=== PATIENT | male | born 1945 | race Caucasian/White ===

== ENCOUNTER 2021-12-10 11:39 | Outpatient (CLI) | payer MEDICARE, SELFPAY ==
--- NOTE | ~2021-12-10 | XR_ITS ---
EXAM: XR abdomen/kub 1V DATE: 12/10/2021 12:05 HISTORY: CALCIUM KIDNEY STONE . COMPARISON: None available. FINDINGS: Clear lung bases. Normal bowel gas pattern. No organomegaly. Cholelithiasis. Left ureteral stent. 2.1 cm left midpole calcification. Larger partially overlapping ovoid densities may represent additional new stones or summation artifact. Lumbar scoliosis and multilevel degenerative disc disea se. IMPRESSION: Left nephrolithiasis. Reviewed, dictated and finalized at location K. IMPRESSION: Left nephrolithiasis.
== END 2021-12-10 11:40 | disposition home or self-care (01) ==
PROVIDERS: PCP Emergency Medicine; Visit Provider Urology
DX: N20.0 Calculus of kidney (principal)
CPT/HCPCS: 74018

== ENCOUNTER 2022-01-02 08:15 | Outpatient (CLI) | payer MEDICARE, OTHER, SELFPAY ==
--- NOTE | 2022-01-02 08:30 | ECG_ITS ---
Measurements Intervals [place] Rate: 61 P: 45 PA: 171 QRS: -37 QRSD: 118 T: 38 QT: 388 QTc: 394 Interpretive Statements SINUS RHYTHM LEFT AXIS DEVIATION DELAYED PRECORDIAL R/S TRANSITION LEFT VENTRICULAR HYPERTROPHY AND ST-T CHANGE BASELINE ARTIFACT- I, II, III, AVR, AVL, AVF, V1-V6 BORDERLINE ECG Electronically Signed On 01-02-2022 8:48:27 CDT by Brandon Friedman D.O.
[2022-01-02 08:58] LABS: Anion Gap 8 mmol/L (8-16); Blood Urea Nitrogen 15 mg/dL (9-20); Calcium 9.5 mg/dL (8.4-10.2); Carbon Dioxide 30 mmol/L (22-30); Chloride 102 mmol/L (98-107); Estimated Glomerular Filt Rate > 60; Glucose 176 mg/dL (65-110); Potassium 4.5 mmol/L (3.4-5.0); Sodium 140 mmol/L (137-145)
[2022-01-02 09:12] LABS: Prothrombin Time 12.6 Seconds (11.1-14.7)
[2022-01-02 09:13] LABS: Partial Thromboplastin Time 29.1 SECONDS (22.3-36.8)
== END 2022-01-02 08:16 | disposition home or self-care (01) ==
LOC: ANHSURGERY 08:22
PROVIDERS: Anesthesiology; PCP Internal Medicine; Visit Provider Urology
DX: N20.0 Calculus of kidney (principal); I10 Essential (primary) hypertension; E11.9 Type 2 diabetes mellitus without complications; Z01.818 Encounter for other preprocedural examination; R94.31 Abnormal electrocardiogram [ECG] [EKG]
CPT/HCPCS: 36415; 80048; 85610; 85730; 87086; 87088; 93005

== ENCOUNTER 2022-01-10 01:02 | Day surgery (SDC) | payer MEDICARE, OTHER, SELFPAY ==
[2022-01-01 11:18] VITALS: BMI 24.3
--- NOTE | 2022-01-01 11:30 | PC.NURSE ---
Report to the Outpatient Waiting Room, entrance under the green pavilion located off [facility], at time _0600_ on date _01/10/22_. OR Time: _0730_. - You and your visitor will be asked a series of questions to screen for COVID 19 for your protection. - Only one visitor is allowed at this time. - The patient visitor is requested to leave or wait in car when not with patient. - A mask is required within the hospital. Patients may have clear liquids (water, carbonated beverages, clear teas, apple juice) until 3 hours prior to surgery (0430 AM) with a maximum of 20 ounces. - No food from midnight until time of surgery Take the following medications with a SIP of water the morning of surgery: _AMLODIPINE, METOPROLOL_ Medications to discontinue per ANESTHESIA - MULTIVITAMIN 3 DAYS PRIOR TO SURGERY, Date to take last dose 01/06/22_ Please no deodorant, or body powder the day of surgery. No jewelry (including any body piercings) or valuables the day of surgery, leave them at home. Please take a shower or bath the night before, or the morning of, surgery with an antibacterial soap. Wear comfortable, loose fitting clothing. Children are encouraged to wear pajamas. - Jewelry must be removed prior to entering the operating room. Rings and piercings that are not removed may be cut off. - The hospital will not accept responsibility for valuables. - Please leave all valuables, including medications, at home the day of surgery. If you are going home after surgery, a licensed haul truck driver must drive you home. - NO public transportation without another adult. - We recommend that an adult stay with you for 24 hours following discharge. - We also recommend that you do not drive, make important decision, drink alcoholic beverages, or take any drugs that were not prescribed by your health care provider for at least 24 hours after your discharge time. Follow any additional instructions given to you from your surgeon. If you or anyone in your household have experienced Covid symptoms in the past week, please notify your surgeon or the nurse liaison at the phone number below for possible testing. Telephone instructions given to ___PT and asked if any additional questions and then verbalized understanding. Patient advised to call surgeon office or pre surgery nurse liaison [phone] if any additional questions.
--- NOTE | 2022-01-09 14:42 | P.PNAN_ITS ---
Anes - Initial Pre Proc Eval Procedure: Operation Date: 01/10/22 07:30 Proposed Procedures p Left Extracorporeal Shock Wave Lithotripsy - Harsh Alvarez MD Date/Time: 01/09/22 14:42 Surgeon: Harsh Alvarez MD Pre Op Diagnosis: Left Kidney Stone Patient Data Age: 76 Gender: M Height: 1.73 m Weight: 72.72 kg Allergies Allergy/AdvReac Type Severity Reaction Status Date / Time No Known Allergies Allergy Unknown Unverified 01/01/22 11:14 Home Medications Medication Instructions Recorded Confirmed Type amlodipine 10 mg tablet 10 mg DAILY 01/01/22 01/01/22 History empagliflozin 25 mg tablet 25 mg QAM 01/01/22 01/01/22 History (Jardiance) finasteride 5 mg tablet 5 mg HS 01/01/22 01/01/22 History glimepiride 4 mg tablet 4 mg BID 01/01/22 01/01/22 History lisinopril 40 mg tablet 40 mg QA 01/01/22 01/01/22 History lovastatin 40 mg tablet 40 mg HS 01/01/22 01/01/22 History metformin 1,000 mg tablet 1,000 mg BID 01/01/22 01/01/22 History metoprolol tartrate 25 mg tablet 25 mg BID 01/01/22 01/01/22 History multivitamin 1 tablet PO DAILY 01/01/22 01/01/22 History tamsulosin 0.4 mg capsule 0.4 mg PO HS 01/01/22 01/01/22 History Patient hx anesthesia problems: none Family hx anesthesia problems: none Results Review: All pre-operative results and documents have been reviewed as part of the pre- operative evaluation. [facility] Past Medical History Medical History (Updated 01/09/22 @ 14:43 by Rolando Bacon MD) Arthritis BPH (benign prostatic hyperplasia) Diabetes HTN (hypertension) Hyperlipidemia Social History Social History Smoking status: Former smoker Tobacco type: cigarettes Second hand tobacco smoke exposure: No Additional smoking assessment comments: STATES SMOKED 1PK/DAY/MANY YEARS/QUIT 1999 Alcohol intake: never Substance use: never Substance use type: does not use Living arrangements: with family Spiritual care concerns: No Anes - Eval Final PreProcedure Day of Procedure 01/09/22 14:42 Patient weight: normal Heart: regular rate and rhythm Lungs: clear to auscultation and normal air movement Airway: Mallampati scale class II Neurological: alert and oriented Last oral intake: >/= 8 hours ASA classification: III Emergent: no Anesthetic plan: proceed Anesthesia type and monitoring: general LMA Results Review: All pre-operative results and documents have been reviewed as part of the pre- operative evaluation. Informed Consent: The patient's anesthetic plan and its attendant risks and benefits were discussed with the patient/family/POA. Questions were solicited and answers provided to the satisfaction of the patient/family/POA.
[2022-01-10] VITALS (7 sets, daily range): BP systolic 111–127; BP diastolic 45–64; PULSE 61–70; RESP 12–20; TEMP 36.3–36.9; O2SAT 98–100
--- NOTE | ~2022-01-10 | XR_ITS ---
EXAMINATION: XR abdomen/kub 1V DATE: 01/10/2022 06:26 INDICATION: Left kidney stone. TECHNIQUE: A supine view of the abdomen on 2 radiographs was obtained. COMPARISON: Abdomen radiographs 12/10/2021, CT abdomen and pelvis 06/14/2015 FINDINGS: There is a left internal ureteral stent in expected position. There is a 2.4 cm stone in le ft renal pelvis. There are no dilated loops of bowel. IMPRESSION: 1. 2.4 cm stone in left renal pelvis. 2. Left internal ureteral stent in expected position. Reviewed, dictated and finalized at location A.
[2022-01-10] MEDS: LACTATED RINGERS 1,000 ML 30 ML IV CONT (06:47)
[2022-01-10 07:00] LABS: Glucose Point of Care 97 mg/dl (65-105)
--- NOTE | 2022-01-10 07:19 | WPDHPUPDATE1 ---
History and Physical Update Update Date/Time: 01/10/22 07:19 History and Physical has been reviewed, including an updated exam of the patient. There are NO changes in the patient's condition. Risks, benefits, and alternatives have been discussed and questions answered. Patient agrees to proceed with procedure. Proceed with eswl of left renal calculus
[2022-01-10] MEDS: ceFAZolin 2 GM/D5W 50 ML 2 GM/50 ML BAG IVPB (07:25)
--- NOTE | 2022-01-10 08:06 | P.OP_ITS ---
Procedure Note - Detailed Date of Procedure 01/10/22 Pre-op Diagnosis Left Kidney Stone Post-op Diagnosis Same Procedure Performed Lithotripsy of left renal calculus Surgeon Harsh Alvarez MD Anesthesia General Description of Procedure Patient is taken to the operative suite correctly identified. Once anesthesia was obtained the large left renal pelvic stone measuring 2.4 cm was localized in both planes. Two thousand five hundred shocks were given to the stone. It did not appear to have significant fragmentation at this time. He was taken recovery stable condition. We will see with his postoperative KUB shows in about a week. If there is no fragmentation on postop imaging will recommend PCN L Drains Yes Packing No Pathology None sent Complications No immediate complications Condition Stable Disposition PACU
[2022-01-10 08:22] LABS: Glucose Point of Care 118 mg/dl (65-105)
== END 2022-01-10 09:51 | disposition home or self-care (01) ==
PROVIDERS: PCP Internal Medicine; Visit Provider Urology
PROC: (CPT 50590; principal; 2022-01-10 07:30)
DX: N20.0 Calculus of kidney (principal); N40.1 Benign prostatic hyperplasia with lower urinary tract symptoms; R31.29 Other microscopic hematuria; Z79.84 Long term (current) use of oral hypoglycemic drugs; M19.90 Unspecified osteoarthritis, unspecified site; I10 Essential (primary) hypertension; E78.5 Hyperlipidemia, unspecified; E11.9 Type 2 diabetes mellitus without complications; Z87.891 Personal history of nicotine dependence
CPT/HCPCS: 50590; 74018; 82948; J0690; J1100; J2405; J2704; J7120

== ENCOUNTER 2022-01-17 06:50 | Outpatient (CLI) | payer MEDICARE, OTHER, SELFPAY ==
--- NOTE | ~2022-01-17 | XR_ITS ---
EXAMINATION: XR abdomen/kub 1V INDICATION: Calcium kidney stone TECHNIQUE: Supine views of the abdomen were obtained on 2 radiographs. COMPARISON: 01/10/2022 FINDINGS: A left internal ureteral stent in expected position. There is a 2.2 cm stone in the left re nal pelvis. No additional urolithiasis is identified. Cholelithiasis is noted. There is lumbar levosc oliosis. The visualized lung bases are clear. IMPRESSION: 1. Unchanged stone in the left renal pelvis, left internal ureteral stent in expected position. Reviewed, dictated and finalized at location A. IMPRESSION: 1. Unchanged stone in the left renal pelvis, left internal ureteral stent in ex pected position.
== END 2022-01-17 06:51 | disposition home or self-care (01) ==
PROVIDERS: PCP Internal Medicine; Visit Provider Urology
DX: N20.0 Calculus of kidney (principal)
CPT/HCPCS: 74018

== ENCOUNTER 2022-05-26 13:01 | Outpatient (CLI) | payer MEDICARE, OTHER, SELFPAY ==
--- NOTE | ~2022-05-26 | US_ITS ---
Renal-Bladder ultrasound Clinical History: Renal stone Technique: Real-time sonographic imaging of the kidneys and urinary bladder was performed. Findings: The right kidney measures 11.4 cm in length and the left kidney measures 11.4 cm. There is moderate left hydronephrosis. No right hydronephrosis. 6 mm nonobstructing left lower pole renal ston e present. Renal cortical echogenicity is within normal limits. Bilateral renal cysts are present. The urinary bladder is moderately distended at the time of this exam. No intraluminal echoes are iden tified. No abnormal wall thickening is seen. Prostate gland is enlarged. Impression: Moderate left hydronephrosis. 6 mm nonobstructing left lower pole renal stone. Enlarged prostate gland. Reviewed, dictated and finalized at location . [employer] SALES SUPERVISOR Impression: Moderate left hydronephrosis. 6 mm nonobstructing left lower pole renal stone. Enlarged prostate gland.
== END 2022-05-26 13:02 | disposition home or self-care (01) ==
PROVIDERS: PCP Internal Medicine; Visit Provider Urology
DX: N20.0 Calculus of kidney (principal)
CPT/HCPCS: 76775

== ENCOUNTER 2022-06-25 07:39 | Outpatient (CLI) | payer MEDICARE, OTHER, SELFPAY ==
--- NOTE | ~2022-06-25 | XR_ITS ---
Supine and upright views of the abdomen Clinical history: Renal stone COMPARISON: 01/17/2022 Findings: Bowel gas pattern is nonspecific. No evidence for obstruction or free air. Stable calcifica tions likely corresponding to splenic artery. Previously noted left renal stone and left ureteral yvon nt are no longer present. Osseous structures are intact. Impression: Previously noted large left renal stone and left ureteral stent are no longer visualized. Reviewed, dictated and finalized at location M. CAB DRIVER Impression: Previously noted large left renal stone and left ureteral stent are no longer v isualized.
--- NOTE | ~2022-06-25 | US_ITS ---
Renal-Bladder ultrasound Clinical History: Renal stone Technique: Real-time sonographic imaging of the kidneys and urinary bladder was performed. Findings: The right kidney measures 11.3 cm in length and the left kidney measures 11.6 cm. There is mild to moderate left hydronephrosis. Mild right hydronephrosis. 5 mm nonobstructing left lower pole renal stone noted. Renal cortical echogenicity is within normal limits. No solid renal mass lesion is identified. The urinary bladder is moderately distended at the time of this exam. No intraluminal echoes are iden tified. No abnormal wall thickening is seen. Enlarged prostate gland noted. Impression: [id number] left hydronephrosis and mild right hydronephrosis. 5 mm nonobstructing left lower pole renal stone. Enlarged prostate gland. Reviewed, dictated and finalized at [facility]. SHARPENER Impression: [id number] left hydronephrosis and mild right hydronephrosis. 5 mm nonobstructing left lower pole renal stone. Enlarged prostate gland.
== END 2022-06-25 07:40 | disposition home or self-care (01) ==
PROVIDERS: PCP Internal Medicine; Visit Provider Urology
DX: N20.0 Calculus of kidney (principal); N40.0 Benign prostatic hyperplasia without lower urinary tract symptoms; N13.30 Unspecified hydronephrosis
CPT/HCPCS: 74018; 76775

== ENCOUNTER 2023-04-03 16:14 | Inpatient (IN) | payer MEDICARE, OTHER, SELFPAY ==
[2023-04-03] VITALS (22 sets, daily range): BP systolic 99–168; BP diastolic 44–73; PULSE 45–77; RESP 11–26; TEMP 36.6–36.7; O2SAT 97–100; BMI 19.7
--- NOTE | ~2023-04-03 | XR_ITS ---
EXAMINATION: Consultation XR DATE: 04/03/2023 17:35 INDICATION: Neck pain and difficulty walking. Central canal stenosis at outside imaging TECHNIQUE: Lossy electronic images from a cervical spine MRI performed at [facility] region was perfo rmed and provided for review. COMPARISON: None FINDINGS: Bone alignment is normal. Vertebral body heights are normal. Severe disc height loss with fusion acr oss the endplate margins at C5-C6. There is also fusion across the right C5-C6 facet joint. Mild disc height loss at C2-C3, C3-C4, C4-C5 and C6-C7. Bone marrow signal intensity is normal. There is mild increased cord signal between C3-C4 and C4-C5. The following disc levels are specifically discussed: C2-C3: Disc is mildly bulging There is mild right and moderate left uncovertebral joint osteoarthriti s. There is severe bilateral facet joint osteoarthritis. There is mild right and moderate left neural foraminal stenosis. There is mild central canal stenosis. C3-C4: Disc is bulging. There is severe bilateral uncovertebral joint osteoarthritis. There is severe bilateral facet joint osteoarthritis. There is moderate to severe bilateral neural foraminal stenosi s. There is severe central canal stenosis. C4-C5: Disc is bulging. There is severe right and moderate left uncovertebral joint osteoarthritis. T here is severe bilateral facet joint osteoarthritis. There is moderate bilateral neural foraminal yvon nosis. There is severe central canal stenosis. C5-C6: The disc space appears fused posteriorly with prominent hypertrophic changes at the fused bila teral uncovertebral joints. There are also prominent hypertrophic changes at the fused right facet joe int. There is moderate left-sided facet osteoarthritis. Moderate right and moderate to severe left ne ural foraminal stenosis. There is mild central canal stenosis. C6-C7: Disc is bulging with prominent superimposed left paracentral disc extrusion. There is moderate right and severe left uncovertebral joint osteoarthritis. There is moderate right and severe left fa cet joint osteoarthritis. There is mild bilateral neural foraminal stenosis. There is mild central ca nal stenosis with indentation of the left central ventral surface of the cord. C7-T1: Disc is minimally bulging. There is mild bilateral uncovertebral joint osteoarthritis. There i s moderate right and severe left facet joint osteoarthritis. There is mild bilateral neural foraminal stenosis. There is no central canal stenosis. IMPRESSION: 1. Severe cervical spondylosis with severe central canal stenosis at C3-C4 and C4-C5 and mild interve dorota increased cord signal. Recommend correlation with report from the original diagnostic quality im ages. Reviewed, dictated and finalized at location A. IMPRESSION: 1. Severe cervical spondylosis with severe central canal stenosis at C3-C4 and C4-C5 and mild intervening increased cord signal. Recommend correlation with re port from the original diagnostic quality images.
--- NOTE | ~2023-04-03 | XR_ITS ---
EXAMINATION: XR chest 1V portable Exam Date/Time: 04/04/2023 16:05 CDT HISTORY: pre-op workup Comparison: CT chest abdomen pelvis 06/14/2015. RESULT: Lines, tubes, and devices: None. Lungs and pleura: Clear. Cardiomediastinal silhouette: Mild arch calcification. Other: No acute osseous or upper abdominal finding. IMPRESSION: No acute cardiopulmonary process. Reviewed, dictated and finalized at location K.
--- NOTE | ~2023-04-03 | CT_ITS ---
EXAMINATION: CT cervical spine wo con DATE: 04/05/2023 08:29 INDICATION: pre-op planning TECHNIQUE: Computed tomography (CT) of the cervical spine was performed without intravenous contrast. Automated exposure control and iterative reconstruction technique were employed. The dose-length pro duct was 190.24 mGy-cm. COMPARISON: None. FINDINGS: Vertebral Body Alignment: Trace grade 1 anterolisthesis at C7-T1 and T1-2. Craniocervical and atlantoaxial alignment: Severe degenerative change, with pannus formation that ind ents the thecal sac. Alignment intact. Osseous structures/fracture: No evidence of a lytic or blastic process in the visualized spine. No e vidence of acute fracture. Cervical soft tissues: The paraspinal soft tissues planes are maintained. Multiple sub-1.5 cm thyroid nodules, which require no additional workup. Biapical pleural scarring. Degenerative changes: Multilevel degenerative disc disease, severe and with fusion at C5-6. Multileve l severe facet arthropathy, with right-sided fusion at C5-6. Multilevel mild and moderate degrees of central canal narrowing. Multilevel severe bilateral neural foraminal narrowing. The following levels are specifically discussed: C2-C3: There is mild bilateral uncovertebral joint osteoarthritis. There is moderate bilateral facet joint osteoarthritis. There is no right and mild left neural foraminal stenosis. There is no central canal stenosis. C3-C4: There is moderate bilateral uncovertebral joint osteoarthritis. There is severe right and mode rate left facet joint osteoarthritis. There is severe right and moderate left neural foraminal stenos is. There is moderate central canal stenosis. C4-C5: There is severe bilateral uncovertebral joint osteoarthritis. There is severe right and modera te left facet joint osteoarthritis. There is mild neural foraminal stenosis. There is severe bilatera l central canal stenosis. C5-C6: There is severe bilateral uncovertebral joint osteoarthritis. There is severe right and modera te left facet joint osteoarthritis. There is severe bilateral neural foraminal stenosis. There is mil d central canal stenosis. C6-C7: There is mild bilateral uncovertebral joint osteoarthritis. There is moderate bilateral facet joint osteoarthritis. There is mild bilateral neural foraminal stenosis. There is mild central canal stenosis. C7-T1: There is no uncovertebral joint osteoarthritis. There is moderate bilateral facet joint osteoa rthritis. There is no neural foraminal stenosis. There is no central canal stenosis. IMPRESSION: Multilevel trace grade 1 listheses. Multilevel severe bilateral neural foraminal narrowing. Multilevel degenerative disc disease Reviewed, dictated and finalized at location K.
--- NOTE | ~2023-04-03 | XR_ITS ---
EXAMINATION: XR fluoroscopy no charge DATE: 04/08/2023 14:22 INDICATION: Cervical decompression and fusion TECHNIQUE: 2 fluoroscopic images of the cervical spine were obtained in the frontal and lateral proje ctions during procedure performed by Dr. Kaiser. Radiologist was not present for the imaging or proc edure. The amount of fluoroscopy time used during this procedure was 0.3 minutes. COMPARISON: None. FINDINGS: Lucent gas is seen at the operative bed posterior to the mid cervical spine. C3 and C4 laminectomies and instrumented C3-C5 posterior spinal fusion with bilateral vertical karis and lateral mass screw fix ation. Endotracheal tube is seen in expected position on the frontal projection. IMPRESSION: 1. Fluoroscopy utilized during C3 and C4 laminectomies and C3-C5 instrumented posterior spinal fusion . See procedure note for further detail. Reviewed, dictated and finalized at location A. IMPRESSION: 1. Fluoroscopy utilized during C3 and C4 laminectomies and C3-C5 instrumented p osterior spinal fusion. See procedure note for further detail.
[2023-04-03 17:20] LABS: Basophils Percent Auto 0.5 % (0.2-1.2); Eosinophils Absolute Auto 0.1 K/mm3 (0-0.3); Eosinophils Percent Auto 1.7 % (0-4.4); Hematocrit 38.1 % (42.0-52.0); Hemoglobin 12.3 g/dL (14.0-18.0); Immature Granulocyte Absolute 0.06 K/mm3 (0.00-0.031); Immature Granulocyte Percent A 0.8 % (0-0.5); Lymphocytes Absolute Auto 0.94 K/mm3 (0.9-3.2); Lymphocytes Percent Auto 12.3 % (18.3-44.2); Mean Corpuscular HGB Conc 32.3 g/dl (32-36); Mean Corpuscular Hemoglobin 28.9 pg (26-34); Mean Corpuscular Volume 89.4 fl (80-100); Monocytes Absolute Auto 1.2 K/mm3 (0.1-0.6); Monocytes Percent Auto 15.5 % (2.6-8.5); Neutrophils Absolute Auto 5.3 K/mm3 (1.3-6.7); Neutrophils Percent Auto 69.2 % (45.5-73.1); Platelet Count Result 216 k/mm3 (150-375); Red Blood Count 4.26 M/mm3 (4.6-6.20); Red Cell Distribution Width 13.7 % (11.5-14.5); White Blood Count 7.7 K/mm3 (4.5-10.0)
[2023-04-03 17:32] LABS: Partial Thromboplastin Time 29.4 SECONDS (22.3-36.8)
[2023-04-03 17:33] LABS: Alanine Aminotransferase 41 U/L (6-50); Alkaline Phosphatase 57 U/L (38-126); Anion Gap 4 mmol/L (8-16); Aspartate Amino Transferase 45 U/L (17-59); Bilirubin,Total 0.8 mg/dL (0.2-1.3); Blood Urea Nitrogen 24 mg/dL (9-20); Calcium 9.1 mg/dL (8.4-10.2); Carbon Dioxide 28 mmol/L (22-30); Chloride 103 mmol/L (98-107); Estimated CRCL calculation 93 ml/min; Estimated Glomerular Filt Rate > 60; Glucose 82 mg/dL (65-110); Potassium 4.2 mmol/L (3.4-5.0); Sodium 135 mmol/L (137-145)
--- NOTE | 2023-04-03 18:45 | ED.GENADULT ---
HPI - General Adult General Chief complaint: Recheck/Abnormal Lab/Rx Stated complaint: sent by PCP for MRI results Time Seen by Provider: 04/03/23 16:43 History of Present Illness HPI narrative: Patient is a 77-year-old male who presents ER to be admitted to the hospital after referral from his orthopedic surgeon. 3 weeks ago patient began having falls while walking. He has developed progressive weakness to his left leg and numbness to the hands bilaterally. He is progressed to using a cane and now a walker to walk. Outpatient MRI today showed cervical stenosis with edema around the cord. Neurosurgery was consulted outpatient by the patient's orthopedic surgeon is recommended he come here to be admitted. Patient denies any new injury or fall today. No fevers chills or sweats. He is not on any antiplatelet medications but has been taking diclofenac since the end of February. Related Data Home Medications Medication Instructions Recorded Confirmed amlodipine 10 mg tablet 10 mg DAILY 01/01/22 01/10/22 empagliflozin 25 mg tablet 25 mg [facility] 01/01/22 01/01/22 (Jardiance) finasteride 5 mg tablet 5 mg 01/01/22 01/01/22 glimepiride 4 mg tablet 4 mg BID 01/01/22 01/01/22 lisinopril 40 mg tablet 40 mg [facility] 01/01/22 01/01/22 lovastatin 40 mg tablet 40 mg 01/01/22 01/01/22 metformin 1,000 mg tablet 1,000 mg BID 01/01/22 01/10/22 metoprolol tartrate 25 mg tablet 25 mg BID 01/01/22 01/01/22 multivitamin 1 tablet PO DAILY 01/01/22 01/01/22 tamsulosin 0.4 mg capsule 0.4 mg PO 01/01/22 01/01/22 Allergies Allergy/AdvReac Type Severity Reaction Status Date / Time No Known Allergies Allergy Unknown Unverified 04/03/23 16:14 Review of Systems Review of Systems: All systems reviewed & are unremarkable except as noted in HPI and below Constitutional: Constitutional: Denies chills, Denies fatigue and Denies fever(s) ENT: Denies nasal congestion and Denies sore throat Cardiovascular: Cardiovascular: Denies chest pain, Denies rapid heart rate and Denies radiating jaw, neck or arm pain Respiratory: Respiratory: Denies cough and Denies dyspnea Gastrointestinal: Gastrointestinal: Denies abdominal pain, Denies nausea and Denies vomiting Neurologic: Denies syncope, Denies headache(s), Reports focal weakness and Reports numbness PMFSH Past Medical History Medical History (Updated 04/03/23 @ 18:45 by Marciano Conteh MD) Arthritis BPH (benign prostatic hyperplasia) Diabetes HTN (hypertension) Hyperlipidemia Social History Social History Smoking status: Former smoker Tobacco type: cigarettes Second hand tobacco smoke exposure: No Additional smoking assessment comments: STATES SMOKED 1PK/DAY/MANY YEARS/QUIT 1999 Alcohol intake: never Substance use: never Substance use type: does not use Living arrangements: with family Spiritual care concerns: No Exam Narrative: GENERAL: Well-appearing, well-nourished, and in no acute distress. HEAD: Normocephalic, atraumatic. EYES: PERRL and EOMI. ENT: Mucous membranes moist. CHEST: Clear to auscultation. No respiratory distress. HEART: Regular rate and rhythm. Normal peripheral pulses. ABDOMEN: Soft, nontender, nondistended. EXTREMITIES: Left lower extremity with 4/5 strength at the left hip but 5/5 strength at the knee and ankle and normal strength in the right lower extremity. Strength 5/5 bilateral upper extremities. Patient reports reduced sensation in the fingers of the hands bilaterally. SKIN: Warm, dry, no rash. NEURO: Alert and oriented x3. PSYCH: Normal mood and affect. Course Course Emergency Course: Neurosurgery consulted and aware of patient, admit to hospitalist. Patient's images uploaded per neurosurgery request. Vital Signs Vital signs: Vital Signs Temperature 98.0 F 04/03/23 16:27 Pulse Rate 59 L 04/03/23 16:27 Respiratory Rate 14 04/03/23 16:27 Blood Pressure 99/44 L 04/03/23 16: Pulse Oximetry 99 04/03/23
--- NOTE | 2023-04-03 21:52 | PC.NURSE ---
This patient, Pedro Causey, was admitted to [facility] Surg Room 301-01. Patient/family oriented to hospital policies and general routines including ID bracelet, bed and alarms, visiting hours, pain management, procedures, bathroom and other care routines, personal items, smoking policy, room service/diet, and visiting hours. Information on how to activate the Rapid Response Team has been discussed. Patient/Family are encouraged to report perceived risks to care and to ask questions if they do not understand what they are told or what they should do.
--- NOTE | 2023-04-03 23:31 | PC.NURSE ---
pt states personal items glasses and Maximiliano jeans missing since arrived from ED. club lounge attendant Fang called ED to find items.
[2023-04-04] MEDS: HYDROcodone/acetaminophen (*CRX) 5-325 MG TABLET 1 TAB PO ×3 (01:32→22:00)
[2023-04-04] MEDS: FINASTERIDE 5 MG TABLET PO ×2 (02:12→22:00)
[2023-04-04] MEDS: GABAPENTIN 300 MG CAPSULE PO ×4 (02:12→17:42)
[2023-04-04] MEDS: TAMSULOSIN HCL 0.4 MG CAPSULE PO ×2 (02:12→22:00)
[2023-04-04 06:00] VITALS: BP 126/53; PULSE 72; RESP 14; TEMP 36.5; O2SAT 100
[2023-04-04 09:11] LABS: Glucose Point of Care 142 mg/dl (65-105)
[2023-04-04] MEDS: GLIMEPIRIDE 2 MG TABLET 4 MG PO ×2 (09:51→17:42)
[2023-04-04] MEDS: amLODIPine BESYLATE 5 MG TABLET 10 MG PO (09:51)
[2023-04-04] MEDS: metFORMIN HCL 500 MG TABLET 1000 MG PO ×2 (09:51→17:42)
[2023-04-04 09:52] VITALS: PULSE 66
[2023-04-04] MEDS: EMPAGLIFLOZIN 25 MG TABLET PO (09:52)
[2023-04-04] MEDS: lisinopriL 20 MG TABLET 40 MG PO (09:52)
[2023-04-04] MEDS: METOPROLOL TARTRATE 25 MG TABLET PO ×2 (09:52→22:00)
[2023-04-04] MEDS: MULTIVITAMINS THERAPEUTIC TAB (*BKC) 1 TABLET PO (09:52)
--- NOTE | 2023-04-04 10:10 | PM.IMHP ---
H&P: HPI History of Present Illness Date/Time: 04/04/23 10:10 Chief Complaint: numbness bilateral hands, frequent falls, bilateral leg weakness, left knee pain Narrative: This is a 77-year-old male patient with past drift history of hypertension, type 2 diabetes, BPH hyperlipidemia arthritis who is admitted to the hospital for bilateral hand numbness, weakness in his legs bilaterally with frequent falls and left knee pain from progressive osteoarthritis. Patient has been experiencing several falls recently reports that his bilateral hands and arms have become numb ongoing for the last several weeks. He has also had numbness starting to bilateral toes but not progressing any further. Patient reports that bilateral leg weakness has caused him to need to use a walker for the about the last 1 month. Patient reports he has left knee [id number] arthritis for which she was seeing his orthopedic surgeon when the surgeon told him he needed to get MRIs of the neck and low back based on his current complaints. Patient did get MRI completed at [place] and when the results came back to the orthopedic surgeon regarding spinal stenosis with cord compression patient was immediately referred to our emergency department for admission. Case was discussed with Dr. Kaiser with neuro surgery who agreed with admission. Patient admitted under the hospitalist service with Neurosurgery consult. Patient denies chest pain shortness a breath nausea vomiting bowel or bladder problems. He denies back pain or neck pain. He reports only his left knee hurts him. His symptoms are bilateral and not focal. Review of Systems Review of Systems: All systems reviewed & are unremarkable except as noted in HPI and below PMFSH Past Medical History Medical History Arthritis BPH (benign prostatic hyperplasia) Diabetes HTN (hypertension) Hyperlipidemia Social History Social History Smoking status: Never smoker Tobacco type: cigarettes Second hand tobacco smoke exposure: No Additional smoking assessment comments: STATES SMOKED 1PK/DAY/MANY YEARS/QUIT 1999 Alcohol intake: never Substance use: never Substance use type: does not use Lack of Transportation: No Lack of Food: Never True Current Housing: I Have Housing Concerned About Future Housing: No Difficulty Paying Gas/Electric Bills: No Difficulty Paying for Meds: No Currently Unemployed: No Education: High School Diploma/GED Difficulty w/ Childcare or Family Care: No Living arrangements: with family Spiritual care concerns: No Meds Home Medications and Allergies Home Medications Medication Instructions Recorded Confirmed Type amlodipine 10 mg tablet 10 mg PO DAILY 01/01/22 04/04/23 History empagliflozin 25 mg tablet 25 mg PO QAM 01/01/22 04/04/23 History (Jardiance) finasteride 5 mg tablet 5 mg PO HS 01/01/22 04/04/23 History glimepiride 4 mg tablet 4 mg PO BID 01/01/22 04/04/23 History lisinopril 40 mg tablet 40 mg PO QAM 01/01/22 04/04/23 History lovastatin 40 mg tablet 40 mg PO HS 01/01/22 04/04/23 History metformin 1,000 mg tablet 1,000 mg PO BID 01/01/22 04/04/23 History metoprolol tartrate 25 mg tablet 25 mg PO BID 01/01/22 04/04/23 History multivitamin 1 tablet PO DAILY 01/01/22 04/03/23 History tamsulosin 0.4 mg capsule 0.4 mg PO HS 01/01/22 04/03/23 History acetaminophen 650 mg tablet 650 mg PO Q6H PRN Pain (Scale 04/04/23 04/04/23 History Score 4-6) gabapentin 300 mg capsule 300 mg PO TID 04/04/23 04/04/23 History Allergies Allergy/AdvReac Type Severity Reaction Status Date / Time No Known Allergies Allergy Unknown Unverified 04/03/23 16:14 Vital Signs Vital Signs - 24 hr 04/03/23 16:27 04/03/23 16:40 04/03/23 16:41 Temperature 36.7 C Pulse Rate 59 L 68 65 Respiratory Rate 14 15 18 Blood Pressure 99/44 L 168/71 H Pulse O
[2023-04-04 12:04] LABS: Glucose Point of Care 145 mg/dl (65-105)
[2023-04-04 12:17] LABS: Iron 55 ug/dL (49-181)
[2023-04-04 12:26] LABS: Percent Iron Saturation 17 % (20-50)
[2023-04-04 13:49] LABS: Folic Acid > 20.0 ng/mL (2.76->20)
[2023-04-04 14:00] VITALS: BP 105/48; PULSE 62; RESP 14; TEMP 37.1; O2SAT 98
--- NOTE | 2023-04-04 15:30 | WPDNEUROSGCN ---
Assessment and Plan Assessment and plan (1) Cervical myelopathy: Code(s): G95.9 - Disease of spinal cord, unspecified Status: Acute Plan Mr. Causey is a 77-year-old male with history of HTN, DM who presents with 1-month of myelopathic symptoms including bilateral arm numbness, hand weakness, falls, and progressive difficulty with gait to the point of requiring a walker. On exam, he has weakness of his handgrips and intrinsics with decreased sensation in the arms starting at the biceps and reflexes suggesting cervical myelopathy. MRI cervical spine most notably shows severe spinal cord compression at C3-4 and C4-5 with T2 cord signal change. Given the relatively rapid progression of his symptoms, I recommend proceeding with surgery this admission. I have tentatively discussed surgery in the form of posterior cervical decompression and fusion C3-5 with the patient and his . We discussed the surgery in detail including risks and expected recovery. He is very much in favor of proceeding with surgery as soon as possible. I would like to obtain a CT cervical spine for pre-operative planning. I think it is ok for him to work with physical therapy in the mean time. I will talk to the OR on Thursday morning about a definitive time this coming week. Plan: -I have ordered a CT cervical spine without contrast for pre-op planning -Ok to work with therapy at this time -Ok to be on DVT chemoprophylaxis -Anticipate surgery as an inpatient this coming week. I will discuss this with the OR on Thursday Consult date: 04/04/23 HPI: Pedro Causey is a 77 year old male with history of HTN, DM who presented to the ER yesterday on the advice of Dr. Chavis for severe spinal cord stenosis. About a month ago, the patient was mowing his lawn when he felt his legs give out, causing him to fall. This occurred two more times before he started using a cane and then a walker to ambulate. Around the time of his first fall, he started noticing numbness in his hands in particular as well as some weakness. The numbness extends up to his biceps. He has had increasing difficulty walking with a walker over the last month. He thought this was related to his left knee as he knows he needs to have it replaced, so he saw Dr. Chavis who ordered the MRI of his neck. This was completed yesterday as an outpatient, and Dr. Chavis recommended he go to the ER so that this can be urgently addressed. The patient denies any neck pain, radicular arm pain, or urinary symptoms. He does not use blood thinners. Review of Systems Review of Systems: All systems reviewed & are unremarkable except as noted in HPI and below PMFSH Past Medical History Medical History Arthritis BPH (benign prostatic hyperplasia) Diabetes HTN (hypertension) Hyperlipidemia Social History Social History Smoking status: Never smoker Tobacco type: cigarettes Second hand tobacco smoke exposure: No Additional smoking assessment comments: STATES SMOKED 1PK/DAY/MANY YEARS/QUIT 1999 Alcohol intake: never Substance use: never Substance use type: does not use Lack of Transportation: No Lack of Food: Never True Current Housing: I Have Housing Concerned About Future Housing: No Difficulty Paying Gas/Electric Bills: No Difficulty Paying for Meds: No Currently Unemployed: No Education: High School Diploma/GED Difficulty w/ Childcare or Family Care: No Living arrangements: with family Spiritual care concerns: No Meds Home Medications and Allergies Home Medications Medication Instructions Recorded Confirmed Type amlodipine 10 mg tablet 10 mg PO DAILY 01/01/22 04/04/23 History empagliflozin 25 mg tablet 25 mg PO QAM 01/01/22 04/04/23 History (Jardiance) finasteride 5 mg tablet 5 mg PO HS 01/01/22 04/04/23 History glimepiride 4 mg tablet 4 mg PO BID 12/07
[2023-04-04 16:35] LABS: Glucose Point of Care 191 mg/dl (65-105)
[2023-04-04] MEDS: LOVASTATIN 20 MG TABLET 40 MG PO (21:59)
[2023-04-04 22:00] VITALS: BP 131/55; PULSE 64; RESP 20; TEMP 36.6; O2SAT 100
[2023-04-04 23:25] LABS: Glucose Point of Care 106 mg/dl (65-105)
[2023-04-05] VITALS (7 sets, daily range): BP systolic 99–130; BP diastolic 53–63; PULSE 55–78; RESP 18–20; TEMP 36.2–36.4; O2SAT 98–100
[2023-04-05 06:58] LABS: Basophils Percent Auto 0.4 % (0.2-1.2); Eosinophils Absolute Auto 0.2 K/mm3 (0-0.3); Eosinophils Percent Auto 2.3 % (0-4.4); Hematocrit 40.3 % (42.0-52.0); Hemoglobin 12.8 g/dL (14.0-18.0); Immature Granulocyte Absolute 0.05 K/mm3 (0.00-0.031); Immature Granulocyte Percent A 0.6 % (0-0.5); Lymphocytes Absolute Auto 1.02 K/mm3 (0.9-3.2); Lymphocytes Percent Auto 12.9 % (18.3-44.2); Mean Corpuscular HGB Conc 31.8 g/dl (32-36); Mean Corpuscular Hemoglobin 29.2 pg (26-34); Mean Platelet Volume 10.3 fl (7.4-10.4); Monocytes Absolute Auto 1.2 K/mm3 (0.1-0.6); Monocytes Percent Auto 15.7 % (2.6-8.5); Neutrophils Absolute Auto 5.4 K/mm3 (1.3-6.7); Neutrophils Percent Auto 68.1 % (45.5-73.1); Platelet Count Result 211 k/mm3 (150-375); Red Blood Count 4.38 M/mm3 (4.6-6.20); Red Cell Distribution Width 13.8 % (11.5-14.5); White Blood Count 7.9 K/mm3 (4.5-10.0)
--- NOTE | 2023-04-05 07:05 | PM.IMPN ---
Progress Note: A&P Assessment and Plan (1) Cervical spinal stenosis: Code(s): M48.02 - Spinal stenosis, cervical region Status: Acute Assessment and Plan: Bilateral hand numbness ongoing for weeks, cervical stenosis with cord compression on MRI from outside hospital obtained 04/03 which prompted admission. (2) Cervical myelopathy: Code(s): G95.9 - Disease of spinal cord, unspecified Status: Acute Assessment and Plan: See 1 (3) Diabetes: Code(s): E11.9 - Type 2 diabetes mellitus without complications Status: Acute Assessment and Plan: Type 2, ACHS fingerstick glucose with correction insulin, resume home medications (4) Arthritis: Code(s): M19.90 - Unspecified osteoarthritis, unspecified site Status: Acute Assessment and Plan: osteoarthritis to left knee causing pain and falls (5) HTN (hypertension): Code(s): I10 - Essential (primary) hypertension Status: Acute Assessment and Plan: Stable. Continue home medications. Blood pressure reviewed on 04/05 (6) BPH (benign prostatic hyperplasia): Code(s): N40.0 - Benign prostatic hyperplasia without lower urinary tract symptoms Status: Acute Assessment and Plan: Stable, patient denies urinary incontinence except for one time he could not ambulate with walker fast enough to the bathroom when he knew he had to go. Will continue home medication and obtain post void bladder scan twice to assess for urinary retention. (7) Leg weakness, bilateral: Code(s): R29.898 - Other symptoms and signs involving the musculoskeletal system Status: Acute Assessment and Plan: Left knee osteoarthritis with significant pain but no joint swelling, erythema, warmth or tenderness. Right knee prior partial knee replacement. Negative straight leg raise, 4-5/5 strength bilateral, equal sensation bilateral, no urinary retention or overflow incontinence and no bowel changes, no lumbar back tenderness. Weak from being in bed, will need extensive rehab. Up to chair and commode with assist, maybe use sit to stand for safety. PT consulted for transfers work, OT pending post operative assessment. (8) Frequent falls: Code(s): R29.6 - Repeated falls Status: Acute Assessment and Plan: See 7 Plan Neurosurgery Consult--Dr. Kaiser has seen patient and adding him to OR for this week PT consulted. OK to stand/ambulate with walker with assist, sit in chair and use bedside commode per discussion with Dr. Kaiser Patient will have Cervical Spine surgery during this hospitalization Per Neurosurgery, defer MRI of thoracic or lumbar spine at this time. Resume home medications Admit to [facility] for VTE prophylaxis, no anticoagulation due to upcoming spinal surgery GI prophylaxis not indicated Code status: Full Code Time Spent With Patient Time with patient: 25 - 35 minutes Subjective Date/time seen: 04/05/23 07:05 Interval history: Patient admitted for hand numbness leg weakness inability to ambulate with cervical myelopathy and cervical stenosis with cord compression. Neurosurgery has seen patient. Okay with transfers to the chair and bedside commode. Okay with PT to work for transfers. OT deferred until after surgery. Patient could not get comfortable up in the bed so I assisted him to the chair. Nursing aware. Review of Systems Review of Systems: All systems reviewed & are unremarkable except as noted in HPI and below Exam Narrative: GENERAL: Generally well appearing, alert and oriented, in no apparent distress. He is pleasant and conversant in full sentences. HEENT: Pupils are equally round and briskly reactive to light. Extraocular muscles are intact. Oral mucous membranes are moist without lesions. NECK: The patient has no noted JVD. No adenopathy is appreciated. No C-spine tenderness to palpation. Moderate kyphosis CHEST/LUNGS: Lungs are clear bilaterally w
[2023-04-05 07:13] LABS: Albumin Level 3.8 g/dL (3.5-5.1); Anion Gap 4 mmol/L (8-16); Blood Urea Nitrogen 23 mg/dL (9-20); Calcium 9.1 mg/dL (8.4-10.2); Carbon Dioxide 28 mmol/L (22-30); Chloride 105 mmol/L (98-107); Estimated CRCL calculation 88 ml/min; Estimated Glomerular Filt Rate > 60; Glucose 88 mg/dL (65-110); Phosphorus 3.3 mg/dL (2.5-4.5); Potassium 3.6 mmol/L (3.4-5.0); Sodium 137 mmol/L (137-145)
--- NOTE | 2023-04-05 07:53 | ECG_ITS ---
Measurements Intervals Dennis Rate: 56 P: 62 KS: 173 QRS: -46 QRSD: 134 T: 78 QT: 430 QTc: 416 Interpretive Statements SINUS BRADYCARDIA BASELINE ARTIFACT INTRAVENTRICULAR CONDUCTION DELAY [130+ ms QRS DURATION] LEFT VENTRICULAR HYPERTROPHY AND ST-T CHANGE [VOLTAGE CRITERIA PLUS ST/T ABNORMALITY] SEPTAL MYOCARDIAL INFARCTION , PROBABLY OLD ABNORMAL ECG COMPARED TO ECG 01/02/2022 08:43:49 SINUS BRADYCARDIA NOW PRESENT INTRAVENTRICULAR CONDUCTION DELAY NOW PRESENT Electronically Signed On 04-05-2023 13:45:23 CDT by Demetrius Killian M.D.
[2023-04-05 07:55] LABS: Glucose Point of Care 82 mg/dl (65-105)
--- NOTE | 2023-04-05 08:20 | PCOTNOTE ---
Spoke with hospitalist, Denzel Edge, who is in agreement for cancelation of OT orders for patient, with expectation to reorder post-operatively as participation in OT services at this time will have limited benefit to pt. with concerns for safety due to current level of injury. Re-order OT services when pt. can safely participate in functional activity.
[2023-04-05] MEDS: amLODIPine BESYLATE 5 MG TABLET 10 MG PO (09:13)
[2023-04-05] MEDS: lisinopriL 20 MG TABLET 40 MG PO (09:13)
[2023-04-05] MEDS: metFORMIN HCL 500 MG TABLET 1000 MG PO ×2 (09:13→17:17)
[2023-04-05] MEDS: METOPROLOL TARTRATE 25 MG TABLET PO ×2 (09:13→20:34)
[2023-04-05] MEDS: EMPAGLIFLOZIN 25 MG TABLET PO (09:13)
[2023-04-05] MEDS: GLIMEPIRIDE 2 MG TABLET 4 MG PO ×2 (09:14→17:17)
[2023-04-05] MEDS: MULTIVITAMINS THERAPEUTIC TAB (*BKC) 1 TABLET PO (09:14)
[2023-04-05] MEDS: GABAPENTIN 300 MG CAPSULE PO ×3 (09:14→17:17)
[2023-04-05] MEDS: HYDROcodone/acetaminophen (*CRX) 5-325 MG TABLET 1 TAB PO ×2 (09:25→20:33)
[2023-04-05 12:18] LABS: Glucose Point of Care 97 mg/dl (65-105)
[2023-04-05 16:53] LABS: Glucose Point of Care 132 mg/dl (65-105)
[2023-04-05] MEDS: LOVASTATIN 20 MG TABLET 40 MG PO (20:32)
[2023-04-05] MEDS: TAMSULOSIN HCL 0.4 MG CAPSULE PO (20:33)
[2023-04-05] MEDS: FINASTERIDE 5 MG TABLET PO (20:33)
[2023-04-05 21:33] LABS: Glucose Point of Care 159 mg/dl (65-105)
--- NOTE | 2023-04-05 21:46 | PC.NURSE ---
pt reports 8/10 pain in the left leg, however states that he would rather take norco than morphine at this time, and that the norco does seem to help his pain
[2023-04-06] MEDS: MORPHINE SULFATE (*CRX) 4 MG/ML INJ 2 MG IV PUSH (00:45)
[2023-04-06] MEDS: HYDROcodone/acetaminophen (*CRX) 5-325 MG TABLET 1 TAB PO ×3 (05:20→20:13)
[2023-04-06 06:00] VITALS: BP 116/60; PULSE 59; RESP 20; TEMP 36.1; O2SAT 99
[2023-04-06 06:47] LABS: Basophils Percent Auto 0.3 % (0.2-1.2); Eosinophils Absolute Auto 0.1 K/mm3 (0-0.3); Eosinophils Percent Auto 1.6 % (0-4.4); Hematocrit 41.3 % (42.0-52.0); Hemoglobin 12.8 g/dL (14.0-18.0); Immature Granulocyte Absolute 0.05 K/mm3 (0.00-0.031); Immature Granulocyte Percent A 0.6 % (0-0.5); Lymphocytes Absolute Auto 0.97 K/mm3 (0.9-3.2); Lymphocytes Percent Auto 12.3 % (18.3-44.2); Mean Corpuscular Hemoglobin 28.7 pg (26-34); Mean Corpuscular Volume 92.6 fl (80-100); Mean Platelet Volume 10.7 fl (7.4-10.4); Monocytes Absolute Auto 1.3 K/mm3 (0.1-0.6); Monocytes Percent Auto 16.3 % (2.6-8.5); Neutrophils Absolute Auto 5.5 K/mm3 (1.3-6.7); Neutrophils Percent Auto 68.9 % (45.5-73.1); Platelet Count Result 211 k/mm3 (150-375); Red Blood Count 4.46 M/mm3 (4.6-6.20); Red Cell Distribution Width 13.7 % (11.5-14.5); White Blood Count 7.9 K/mm3 (4.5-10.0)
[2023-04-06 07:00] LABS: Albumin Level 3.9 g/dL (3.5-5.1); Anion Gap 6 mmol/L (8-16); Blood Urea Nitrogen 26 mg/dL (9-20); Calcium 9.1 mg/dL (8.4-10.2); Carbon Dioxide 24 mmol/L (22-30); Chloride 105 mmol/L (98-107); Estimated CRCL calculation 88 ml/min; Estimated Glomerular Filt Rate > 60; Glucose 87 mg/dL (65-110); Phosphorus 3.3 mg/dL (2.5-4.5); Potassium 3.7 mmol/L (3.4-5.0); Sodium 135 mmol/L (137-145)
[2023-04-06] MEDS: GLIMEPIRIDE 2 MG TABLET 4 MG PO ×2 (08:20→16:27)
[2023-04-06 08:21] VITALS: PULSE 75
[2023-04-06] MEDS: metFORMIN HCL 500 MG TABLET 1000 MG PO ×2 (08:21→16:27)
[2023-04-06] MEDS: lisinopriL 20 MG TABLET 40 MG PO (08:21)
[2023-04-06] MEDS: MULTIVITAMINS THERAPEUTIC TAB (*BKC) 1 TABLET PO (08:21)
[2023-04-06] MEDS: GABAPENTIN 300 MG CAPSULE PO ×3 (08:21→16:27)
[2023-04-06] MEDS: EMPAGLIFLOZIN 25 MG TABLET PO (08:21)
[2023-04-06] MEDS: METOPROLOL TARTRATE 25 MG TABLET PO ×2 (08:21→20:13)
[2023-04-06] MEDS: amLODIPine BESYLATE 5 MG TABLET 10 MG PO (08:23)
--- NOTE | 2023-04-06 08:48 | WPDNEUROSGPN ---
Progress Note: A&P Assessment and Plan (1) Cervical myelopathy: Code(s): G95.9 - Disease of spinal cord, unspecified Status: Acute Plan I was able to get time with the OR on Thursday at about 11am. I have posted him for posterior cervical decompression and fusion C3-5. Please make NPO after midnight on Thursday morning and hold DVT ppx after Thursday night. Subjective Date/time seen: 04/06/23 08:48 Objective Data Vital Signs Vital Signs: Vital Signs - 24 hr 04/05/23 09:13 04/05/23 12:17 04/05/23 13:50 Temperature 97.5 F L Pulse Rate 78 55 L 58 L Respiratory Rate 18 Blood Pressure 110/53 L 99/61 L Pulse Oximetry 100 Oxygen Delivery 04/05/23 18:38 04/05/23 20:34 04/05/23 21:49 Temperature 97.3 F L Pulse Rate 68 62 Respiratory Rate 20 Blood Pressure 130/62 130/63 Pulse Oximetry 98 Oxygen Delivery 04/05/23 20:00 04/06/23 06:00 04/06/23 08:21 Temperature 97 F L Pulse Rate 59 L 75 Respiratory Rate 20 Blood Pressure 116/60 Pulse Oximetry 99 Oxygen Delivery Room Air Intake/Output Intake/Output: Intake & Output 04/03/23 04/04/23 04/05/23 04/06/23 23:59 23:59 23:59 23:59 Intake Total 936 1220 350 Output Total 1350 1225 675 Balance -414 -5 -325 Meds/Results Medications: Active Medications Generic Name Dose Route Start Last Admin Trade Name Freq PRN Reason Stop Dose Admin Acetaminophen 650 mg 04/03/23 18:45 Acetaminophen 325 Mg Tablet PO Q4H PRN Mild Pain (1-3) or Fever Hydrocodone Bitart/Acetaminophen 1 tab 04/03/23 18:45 04/06/23 05:20 Hydrocodone/Acetaminophen (*Crx) 5-325 Mg Tablet PO 1 tab Q4H PRN Administration Pain Rated 4-6 Amlodipine Besylate 10 mg 04/04/23 09:00 04/06/23 08:23 Amlodipine Besylate 5 Mg Tablet PO 10 mg DAILY ESPINOZA Administration Dextrose 12.5 gm 04/04/23 02:01 Dextrose 50% 25 Gm/50 Ml Syringe IV PUSH PRN PRN Hypoglycemia Protocol Empagliflozin 25 mg 04/04/23 09:00 04/06/23 08:21 Empagliflozin 25 Mg Tablet PO 25 mg QAM ESPINOZA Administration Finasteride 5 mg 04/04/23 02:00 04/05/23 20:33 Finasteride 5 Mg Tablet PO 5 mg HS ESPINOZA Administration Gabapentin 300 mg 04/04/23 02:00 04/06/23 08:21 Gabapentin 300 Mg Capsule PO 300 mg TID ESPINOZA Administration Glimepiride 4 mg 04/04/23 09:00 04/06/23 08:20 Glimepiride 2 Mg Tablet PO 05/04/23 08:59 4 mg BID ESPINOZA Administration Glucagon 1 mg 04/04/23 02:01 Glucagon For Inj 1 Mg Vial IM PRN PRN Hypoglycemia Protocol Glucose 15 gm 04/04/23 02:01 Glucose Oral Gel 15 Gm Of Glucse In 37.5 Gm Tube PO PRN PRN Hypoglycemia Protocol Dextrose 1,000 mls @ 100 mls/hr 04/04/23 02:01 Dextrose 5% 1,000 Ml IVPB PRN PRN Hypoglycemia Protocol Insulin Aspart 2 - 5 units 04/04/23 08:00 04/06/23 08:23 Insulin Aspart (*Bkc) 100 Units/Ml SUB-Q Not Given TIDWM ESPINOZA Protocol Insulin Aspart 1 - 2 units 04/04/23 21:00 04/05/23 21:35 Insulin Aspart (*Bkc) 100 Units/Ml SUB-Q Not Given HS ESPINOZA Protocol Lisinopril 40 mg 04/04/23 09:00 04/06/23 08:21 Lisinopril 20 Mg Tablet PO 40 mg QAM ESPINOZA Administration Lovastatin 40 mg 04/04/23 21:00 04/05/23 20:32 Lovastatin 20 Mg Tablet PO 40 mg HS ESPINOZA Administration Metformin HCl 1,000 mg 04/04/23 09:00 04/06/23 08:21 Metformin Hcl 500 Mg Tablet PO 1,000 mg BID ESPINOZA Administration Metoprolol Tartrate 25 mg 04/04/23 09:00 04/06/23 08:21 Metoprolol Tartrate 25 Mg Tablet PO 25 mg Q12HR ESPINOZA Administration Morphine Sulfate 2 mg 04/03/23 18:45 04/06/23 00:45 Morphine Sulfate (*Crx) 4 Mg/Ml Inj IV PUSH 2 mg Q2H PRN Administration Pain Rated 7-10 Multivitamins Therapeutic 1 tablet 04/04/23 09:00 04/06/23 08:21 Multivitamins Therapeutic Tab (*Bkc) PO 1 tablet DAILY ESPINOZA Administration Ondansetron HCl
[2023-04-06] MEDS: ENOXAPARIN 40 MG/0.4 ML SYRINGE SUB-Q (10:11)
--- NOTE | 2023-04-06 10:14 | PM.IMPN ---
Progress Note: A&P Assessment and Plan (1) Cervical spinal stenosis: Code(s): M48.02 - Spinal stenosis, cervical region Status: Acute Assessment and Plan: Bilateral hand numbness ongoing for weeks, cervical stenosis with cord compression on MRI from outside hospital obtained 04/03 which prompted admission. (2) Cervical myelopathy: Code(s): G95.9 - Disease of spinal cord, unspecified Status: Acute Assessment and Plan: See 1 (3) Diabetes: Code(s): E11.9 - Type 2 diabetes mellitus without complications Status: Acute Assessment and Plan: Type 2, ACHS fingerstick glucose with correction insulin, resume home medications. Blood sugars reviewed on 04/06 (4) Arthritis: Code(s): M19.90 - Unspecified osteoarthritis, unspecified site Status: Acute Assessment and Plan: osteoarthritis to left knee causing pain and falls (5) HTN (hypertension): Code(s): I10 - Essential (primary) hypertension Status: Acute Assessment and Plan: Stable. Continue home medications. Blood pressure reviewed on 04/06 (6) BPH (benign prostatic hyperplasia): Code(s): N40.0 - Benign prostatic hyperplasia without lower urinary tract symptoms Status: Acute Assessment and Plan: Stable, patient denies urinary incontinence except for one time he could not ambulate with walker fast enough to the bathroom when he knew he had to go. Will continue home medication and obtain post void bladder scan twice to assess for urinary retention. (7) Leg weakness, bilateral: Code(s): R29.898 - Other symptoms and signs involving the musculoskeletal system Status: Acute Assessment and Plan: Left knee osteoarthritis with significant pain but no joint swelling, erythema, warmth or tenderness. Right knee prior partial knee replacement. Negative straight leg raise, 4-5/5 strength bilateral, equal sensation bilateral, no urinary retention or overflow incontinence and no bowel changes, no lumbar back tenderness. Weak from being in bed, will need extensive rehab. Up to chair and commode with assist, maybe use sit to stand for safety. PT consulted for transfers work, OT pending post operative assessment. (8) Frequent falls: Code(s): R29.6 - Repeated falls Status: Acute Assessment and Plan: See 7 Plan Neurosurgery Consult--Dr. Kaiser has seen patient and adding him to OR Sunday 04/08 @ 11:00 am PT consulted. Transferring better, unable to ambulate with walker today Per Neurosurgery, defer MRI of thoracic or lumbar spine at this time. SCDs for VTE prophylaxis, Lovenox 04/06 and 04/07 Code status: Full Code Time Spent With Patient Time with patient: 15 - 25 minutes Subjective Date/time seen: 04/06/23 10:14 Interval history: 04/05: Patient admitted for hand numbness leg weakness inability to ambulate with cervical myelopathy and cervical stenosis with cord compression. Neurosurgery has seen patient. Okay with transfers to the chair and bedside commode. Okay with PT to work for transfers. OT deferred until after surgery. Patient could not get comfortable up in the bed so I assisted him to the chair. Nursing aware. 04/06: Patient reports working with physical therapy well. He is eagerly awaiting surgical procedure which is scheduled for Sunday 04/08 @ 11:00 am. Patient denies any new or worsening symptoms. Review of Systems Review of Systems: All systems reviewed & are unremarkable except as noted in HPI and below Exam Narrative: GENERAL: Generally well appearing, alert and oriented, in no apparent distress. He is pleasant and conversant in full sentences. HEENT: Pupils are equally round and briskly reactive to light. Extraocular muscles are intact. Oral mucous membranes are moist without lesions. NECK: The patient has no noted JVD. No adenopathy is appreciated. No C-spine tenderness to palpation. Moderate kyphosis CHEST/LUNGS:
[2023-04-06 10:31] LABS: Glucose Point of Care 85 mg/dl (65-105)
[2023-04-06 11:59] LABS: Glucose Point of Care 121 mg/dl (65-105)
[2023-04-06 14:11] VITALS: BP 104/53; PULSE 64; RESP 16; TEMP 36.5; O2SAT 99
[2023-04-06 16:27] LABS: Glucose Point of Care 163 mg/dl (65-105)
[2023-04-06] MEDS: FINASTERIDE 5 MG TABLET PO (20:12)
[2023-04-06 20:13] VITALS: PULSE 64
[2023-04-06] MEDS: LOVASTATIN 20 MG TABLET 40 MG PO (20:13)
[2023-04-06] MEDS: TAMSULOSIN HCL 0.4 MG CAPSULE PO (20:13)
[2023-04-06 22:00] VITALS: BP 122/54; PULSE 60; RESP 16; TEMP 37.2; O2SAT 99
[2023-04-07] MEDS: HYDROcodone/acetaminophen (*CRX) 5-325 MG TABLET 1 TAB PO ×2 (04:41→20:44)
[2023-04-07 06:00] VITALS: BP 108/53; PULSE 64; RESP 18; TEMP 36.4; O2SAT 99
[2023-04-07 07:53] LABS: Basophils Percent Auto 0.4 % (0.2-1.2); Eosinophils Absolute Auto 0.1 K/mm3 (0-0.3); Eosinophils Percent Auto 0.9 % (0-4.4); Hematocrit 41.1 % (42.0-52.0); Hemoglobin 13.2 g/dL (14.0-18.0); Immature Granulocyte Absolute 0.05 K/mm3 (0.00-0.031); Immature Granulocyte Percent A 0.4 % (0-0.5); Lymphocytes Absolute Auto 1.02 K/mm3 (0.9-3.2); Lymphocytes Percent Auto 9.1 % (18.3-44.2); Mean Corpuscular HGB Conc 32.1 g/dl (32-36); Mean Corpuscular Hemoglobin 29.1 pg (26-34); Mean Corpuscular Volume 90.5 fl (80-100); Mean Platelet Volume 10.4 fl (7.4-10.4); Monocytes Absolute Auto 1.8 K/mm3 (0.1-0.6); Monocytes Percent Auto 15.7 % (2.6-8.5); Neutrophils Absolute Auto 8.3 K/mm3 (1.3-6.7); Neutrophils Percent Auto 73.5 % (45.5-73.1); Platelet Count Result 222 k/mm3 (150-375); Red Blood Count 4.54 M/mm3 (4.6-6.20); Red Cell Distribution Width 13.6 % (11.5-14.5); White Blood Count 11.2 K/mm3 (4.5-10.0)
[2023-04-07 08:02] LABS: Anion Gap 6 mmol/L (8-16); Blood Urea Nitrogen 27 mg/dL (9-20); Calcium 9.3 mg/dL (8.4-10.2); Carbon Dioxide 27 mmol/L (22-30); Chloride 105 mmol/L (98-107); Estimated CRCL calculation 75 ml/min; Estimated Glomerular Filt Rate > 60; Glucose 89 mg/dL (65-110); Phosphorus 3.2 mg/dL (2.5-4.5); Potassium 3.8 mmol/L (3.4-5.0); Sodium 138 mmol/L (137-145)
[2023-04-07 08:32] LABS: Glucose Point of Care 76 mg/dl (65-105)
[2023-04-07] MEDS: lisinopriL 20 MG TABLET 40 MG PO (08:40)
[2023-04-07] MEDS: metFORMIN HCL 500 MG TABLET 1000 MG PO ×2 (08:41→17:40)
[2023-04-07] MEDS: GLIMEPIRIDE 2 MG TABLET 4 MG PO ×2 (08:41→17:39)
[2023-04-07] MEDS: amLODIPine BESYLATE 5 MG TABLET 10 MG PO (08:41)
[2023-04-07] MEDS: GABAPENTIN 300 MG CAPSULE PO ×3 (08:41→17:40)
[2023-04-07] MEDS: MULTIVITAMINS THERAPEUTIC TAB (*BKC) 1 TABLET PO (08:41)
[2023-04-07 08:42] VITALS: PULSE 80
[2023-04-07] MEDS: EMPAGLIFLOZIN 25 MG TABLET PO (08:42)
[2023-04-07] MEDS: METOPROLOL TARTRATE 25 MG TABLET PO ×2 (08:42→20:46)
--- NOTE | 2023-04-07 10:52 | PM.IMPN ---
Progress Note: A&P Assessment and Plan (1) Cervical spinal stenosis: Code(s): M48.02 - Spinal stenosis, cervical region Status: Acute Assessment and Plan: Bilateral hand numbness ongoing for weeks, cervical stenosis with cord compression on MRI from outside hospital obtained 04/03 which prompted admission. (2) Cervical myelopathy: Code(s): G95.9 - Disease of spinal cord, unspecified Status: Acute Assessment and Plan: See 1 (3) Diabetes: Code(s): E11.9 - Type 2 diabetes mellitus without complications Status: Acute Assessment and Plan: Type 2, ACHS fingerstick glucose with correction insulin, resume home medications. Blood sugars reviewed on 04/07 (4) Arthritis: Code(s): M19.90 - Unspecified osteoarthritis, unspecified site Status: Acute Assessment and Plan: osteoarthritis to left knee causing pain and falls (5) HTN (hypertension): Code(s): I10 - Essential (primary) hypertension Status: Acute Assessment and Plan: Stable. Continue home medications. Blood pressure reviewed on 04/07 (6) BPH (benign prostatic hyperplasia): Code(s): N40.0 - Benign prostatic hyperplasia without lower urinary tract symptoms Status: Acute Assessment and Plan: Stable, patient denies urinary incontinence except for one time he could not ambulate with walker fast enough to the bathroom when he knew he had to go. Will continue home medication and obtain post void bladder scan twice to assess for urinary retention. (7) Leg weakness, bilateral: Code(s): R29.898 - Other symptoms and signs involving the musculoskeletal system Status: Acute Assessment and Plan: Left knee osteoarthritis with significant pain but no joint swelling, erythema, warmth or tenderness. Right knee prior partial knee replacement. Negative straight leg raise, 4-5/5 strength bilateral, equal sensation bilateral, no urinary retention or overflow incontinence and no bowel changes, no lumbar back tenderness. Weak from being in bed, will need extensive rehab. Up to chair and commode with assist, maybe use sit to stand for safety. PT consulted for transfers work, OT pending post operative assessment. (8) Frequent falls: Code(s): R29.6 - Repeated falls Status: Acute Assessment and Plan: See 7 Plan Neurosurgery Consult--Dr. Kaiser has seen patient and adding him to OR Sunday 04/08 @ 11:00 am PT consulted. Transferring OK, unable to ambulate with walker Per Neurosurgery, defer MRI of thoracic or lumbar spine at this time. SCDs for VTE prophylaxis, anticoagulation on hold for surgery Code status: Full Code Time Spent With Patient Time with patient: 15 - 25 minutes Subjective Date/time seen: 04/07/23 10:52 Interval history: 04/05: Patient admitted for hand numbness leg weakness inability to ambulate with cervical myelopathy and cervical stenosis with cord compression. Neurosurgery has seen patient. Okay with transfers to the chair and bedside commode. Okay with PT to work for transfers. OT deferred until after surgery. Patient could not get comfortable up in the bed so I assisted him to the chair. Nursing aware. 04/06: Patient reports working with physical therapy well. He is eagerly awaiting surgical procedure which is scheduled for Sunday 04/08 @ 11:00 am. Patient denies any new or worsening symptoms. 04/07: Patient denies any new symptoms or worsening of current symptoms. Surgery is pending tomorrow. Review of Systems Review of Systems: All systems reviewed & are unremarkable except as noted in HPI and below Exam Narrative: GENERAL: Generally well appearing, alert and oriented, in no apparent distress. He is pleasant and conversant in full sentences. HEENT: Pupils are equally round and briskly reactive to light. Extraocular muscles are intact. Oral mucous membranes are moist without lesions. NECK: The patient has no no
[2023-04-07 11:30] LABS: Glucose Point of Care 174 mg/dl (65-105)
[2023-04-07 14:00] VITALS: BP 106/55; PULSE 68; RESP 22; TEMP 36; O2SAT 100
[2023-04-07 16:58] LABS: Glucose Point of Care 196 mg/dl (65-105)
[2023-04-07 20:00] VITALS: PULSE 68; RESP 22; O2SAT 100
[2023-04-07 20:46] VITALS: PULSE 68
[2023-04-07] MEDS: FINASTERIDE 5 MG TABLET PO (20:46)
[2023-04-07] MEDS: LOVASTATIN 20 MG TABLET 40 MG PO (20:46)
[2023-04-07] MEDS: TAMSULOSIN HCL 0.4 MG CAPSULE PO (21:00)
[2023-04-07 21:02] LABS: Glucose Point of Care 172 mg/dl (65-105)
[2023-04-07 22:00] VITALS: BP 124/58; PULSE 65; RESP 20; TEMP 36.4; O2SAT 100
[2023-04-08] VITALS (13 sets, daily range): BP systolic 107–136; BP diastolic 51–63; PULSE 67–100; RESP 16–24; TEMP 36.2–36.5; O2SAT 95–100
[2023-04-08] MEDS: HYDROcodone/acetaminophen (*CRX) 5-325 MG TABLET 1 TAB PO (05:30)
[2023-04-08 07:21] LABS: Basophils Percent Auto 0.4 % (0.2-1.2); Eosinophils Absolute Auto 0.1 K/mm3 (0-0.3); Eosinophils Percent Auto 1.7 % (0-4.4); Hematocrit 40.6 % (42.0-52.0); Hemoglobin 12.9 g/dL (14.0-18.0); Immature Granulocyte Absolute 0.04 K/mm3 (0.00-0.031); Immature Granulocyte Percent A 0.5 % (0-0.5); Lymphocytes Absolute Auto 0.94 K/mm3 (0.9-3.2); Lymphocytes Percent Auto 12.1 % (18.3-44.2); Mean Corpuscular HGB Conc 31.8 g/dl (32-36); Mean Corpuscular Hemoglobin 28.9 pg (26-34); Mean Platelet Volume 11.1 fl (7.4-10.4); Monocytes Absolute Auto 1.4 K/mm3 (0.1-0.6); Monocytes Percent Auto 18.4 % (2.6-8.5); Neutrophils Absolute Auto 5.2 K/mm3 (1.3-6.7); Neutrophils Percent Auto 66.9 % (45.5-73.1); Platelet Count Result 192 k/mm3 (150-375); Red Blood Count 4.46 M/mm3 (4.6-6.20); Red Cell Distribution Width 13.9 % (11.5-14.5); White Blood Count 7.8 K/mm3 (4.5-10.0)
[2023-04-08 07:29] LABS: Anion Gap 6 mmol/L (8-16); Blood Urea Nitrogen 24 mg/dL (9-20); Calcium 9.4 mg/dL (8.4-10.2); Carbon Dioxide 28 mmol/L (22-30); Chloride 106 mmol/L (98-107); Estimated CRCL calculation 88 ml/min; Estimated Glomerular Filt Rate > 60; Glucose 104 mg/dL (65-110); Phosphorus 3.1 mg/dL (2.5-4.5); Potassium 3.9 mmol/L (3.4-5.0); Sodium 140 mmol/L (137-145)
--- NOTE | 2023-04-08 08:24 | PM.IMPN ---
Progress Note: A&P Assessment and Plan (1) Cervical spinal stenosis: Code(s): M48.02 - Spinal stenosis, cervical region Status: Acute Assessment and Plan: Bilateral hand numbness ongoing for weeks, cervical stenosis with cord compression on MRI from outside hospital obtained 04/03 which prompted admission. 04/08: going for surgery with Dr Kaiser at 11 am (2) Cervical myelopathy: Code(s): G95.9 - Disease of spinal cord, unspecified Status: Acute Assessment and Plan: See 1 (3) Diabetes: Code(s): E11.9 - Type 2 diabetes mellitus without complications Status: Acute Assessment and Plan: Type 2, ACHS fingerstick glucose with correction insulin, resume home medications (glimepiride and metformin). Blood sugars reviewed on 04/08 (4) Arthritis: Code(s): M19.90 - Unspecified osteoarthritis, unspecified site Status: Acute Assessment and Plan: osteoarthritis to left knee causing pain and falls Acetaminophen and norco for pain PT/OT. (5) HTN (hypertension): Code(s): I10 - Essential (primary) hypertension Status: Acute Assessment and Plan: Stable. Continue home medications. Blood pressure reviewed on 04/08 (6) BPH (benign prostatic hyperplasia): Code(s): N40.0 - Benign prostatic hyperplasia without lower urinary tract symptoms Status: Acute Assessment and Plan: Stable, patient denies urinary incontinence except for one time he could not ambulate with walker fast enough to the bathroom when he knew he had to go. Will continue home medication and obtain post void bladder scan twice to assess for urinary retention. (7) Leg weakness, bilateral: Code(s): R29.898 - Other symptoms and signs involving the musculoskeletal system Status: Acute Assessment and Plan: Left knee osteoarthritis with significant pain but no joint swelling, erythema, warmth or tenderness. Right knee prior partial knee replacement. Negative straight leg raise, 4-5/5 strength bilateral, equal sensation bilateral, no urinary retention or overflow incontinence and no bowel changes, no lumbar back tenderness. Weak from being in bed, will need extensive rehab. Up to chair and commode with assist, maybe use sit to stand for safety. PT consulted for transfers work, OT pending post operative assessment. (8) Frequent falls: Code(s): R29.6 - Repeated falls Status: Acute Assessment and Plan: See 7 Plan Neurosurgery Consult--Dr. Kaiser has seen patient and adding him to OR Sunday 04/08 @ 11:00 am PT consulted. Transferring OK, unable to ambulate with walker Per Neurosurgery, defer MRI of thoracic or lumbar spine at this time. SCDs for VTE prophylaxis, anticoagulation on hold for surgery Code status: Full Code Subjective Date/time seen: 04/08/23 08:24 Interval history: HPI obtained from the chart, 04/04: This is a 77-year-old male patient with past drift history of hypertension, type 2 diabetes, BPH hyperlipidemia arthritis who is admitted to the hospital for bilateral hand numbness, weakness in his legs bilaterally with frequent falls and left knee pain from progressive osteoarthritis.? Patient has been experiencing several falls recently reports that his bilateral hands and arms have become numb ongoing for the last several weeks.? He has also had numbness starting to bilateral toes but not progressing any further.? Patient reports that bilateral leg weakness has caused him to need to use a walker for the about the last 1 month.? Patient reports he has left knee [id number] arthritis for which she was seeing his orthopedic surgeon when the surgeon told him he needed to get MRIs of the neck and low back based on his current complaints.? Patient did get MRI completed at [facility] and when the results came back to the orthopedic surgeon regarding spinal stenosis with cord compression patient was immediately referred to our emergency d
[2023-04-08] MEDS: amLODIPine BESYLATE 5 MG TABLET 10 MG PO (08:29)
[2023-04-08] MEDS: METOPROLOL TARTRATE 25 MG TABLET PO ×2 (08:29→21:26)
[2023-04-08 08:54] LABS: Glucose Point of Care 118 mg/dl (65-105)
[2023-04-08 10:08] LABS: Glucose Point of Care 94 mg/dl (65-105)
--- NOTE | 2023-04-08 11:08 | WPDHPUPDATE1 ---
History and Physical Update Update Date/Time: 04/08/23 11:08 History and Physical has been reviewed, including an updated exam of the patient. There are NO changes in the patient's condition. Risks, benefits, and alternatives have been discussed and questions answered. Patient agrees to proceed with procedure.
--- NOTE | 2023-04-08 11:29 | WPDANESEPPF ---
Anes - Initial Pre Proc Eval Procedure: Operation Date: 04/08/23 11:00 Proposed Procedures p C3-5 Posterior Cervical Decompression and Fusion - Tanna Kaiser MD Date/Time: 04/08/23 11:29 Surgeon: Anish Stuart MD Pre Op Diagnosis: Cervical Spinal Stenosis Patient Data Age: 77 Gender: M Height: 1.75 m Weight: 60.5 kg Last Vital Signs Temp 97.4 F L 04/08/23 06:00 Pulse 67 04/08/23 08:29 Resp 24 H 04/08/23 06:00 BP 136/51 L 04/08/23 06:00 Pulse Ox 95 04/08/23 06:00 O2 Del Method Room Air 04/08/23 08:00 Allergies Allergy/AdvReac Type Severity Reaction Status Date / Time No Known Allergies Allergy Unknown Unverified 04/03/23 16:14 Home Medications Medication Instructions Recorded Confirmed Type amlodipine 10 mg tablet 10 mg PO DAILY 01/01/22 04/04/23 History empagliflozin 25 mg tablet 25 mg PO QAM 01/01/22 04/04/23 History (Jardiance) finasteride 5 mg tablet 5 mg PO HS 01/01/22 04/04/23 History glimepiride 4 mg tablet 4 mg PO BID 01/01/22 04/04/23 History lisinopril 40 mg tablet 40 mg PO QAM 01/01/22 04/04/23 History lovastatin 40 mg tablet 40 mg PO HS 01/01/22 04/04/23 History metformin 1,000 mg tablet 1,000 mg PO BID 01/01/22 04/04/23 History metoprolol tartrate 25 mg tablet 25 mg PO BID 01/01/22 04/04/23 History multivitamin 1 tablet PO DAILY 01/01/22 04/03/23 History tamsulosin 0.4 mg capsule 0.4 mg PO HS 01/01/22 04/03/23 History acetaminophen 650 mg tablet 650 mg PO Q6H PRN Pain (Scale 04/04/23 04/04/23 History Score 4-6) gabapentin 300 mg capsule 300 mg PO TID 04/04/23 04/04/23 History Laboratory Tests 04/07/23 04/07/23 04/07/23 11:17 16:55 20:58 WBC RBC Hgb Hct MCV MCH MCHC RDW Plt Count MPV Immature Gran % (Auto) Neut % (Auto) Lymph % (Auto) [place] % (Auto) Eos % (Auto) Baso % (Auto) Lymph # (Auto) [place] # (Auto) Eos # (Auto) Baso # (Auto) Abs Immat Gran (auto) Absolute Neuts (auto) Absolute Nucleated RBC Nucleated RBC % Sodium Potassium Chloride Carbon Dioxide Anion Gap BUN Creatinine Estim Creat Clear Calc Estimated GFR Glucose POC Capillary Glucose 174 H mg/dl 196 H mg/dl 172 H mg/dl (65-105) (65-105) (65-105) Calcium Phosphorus Albumin 04/08/23 04/08/23 04/08/23 06:04 08:16 10:02 WBC 7.8 K/mm3 (4.5-10.0) RBC 4.46 L M/mm3 (4.6-6.20) Hgb 12.9 L g/dL (14.0-18.0) Hct 40.6 L % (42.0-52.0) MCV 91.0 fl (80-100) MCH 28.9 pg (26-34) MCHC 31.8 L g/dl (32-36) RDW 13.9 % (11.5-14.5) Plt Count 192 k/mm3 (150-375) MPV 11.1 H fl (7.4-10.4) Immature Gran % (Auto) 0.5 % (0-0.5) Neut % (Auto) 66.9 % (45.5-73.1) Lymph % (Auto) 12.1 L % (18.3-44.2) [place] % (Auto) 18.4 H % (2.6-8.5) Eos % (Auto) 1.7 % (0-4.4) Baso % (Auto) 0.4 % (0.2-1.2) Lymph # (Auto) 0.94 K/mm3 (0.9-3.2) [place] # (Auto) 1.4 H K/mm3 (0.1-0.6) Eos # (Auto) 0.1 K/mm3 (0-0.3) Baso # (Auto) 0.0 K/mm3 (0.0-0.1) Abs Immat Gran (auto) 0.04 H K/mm3 (0.00-0.031) Absolute Neuts (auto) 5.2 K/mm3 (1.3-6.7) Absolute Nucleated RBC 0.0 K/mm3 (0.0-0.012) Nucleated RBC % 0.0 % (0.0-0.2) Sodium 140 mmol/L (137-145) Potassium 3.9 mmol/L (3.4-5.0) Chloride 106 mmol/L (98-107) Carbon Dioxide 28 mmol/L (22-30) Anion Gap 6 L
[2023-04-08] MEDS: ceFAZolin 2 GM/D5W 50 ML 2 GM/50 ML BAG IVPB ×2 (11:38→21:23)
[2023-04-08] MEDS: BUPIVACAINE/EPINEPHRINE 0.5% 50 ML VIAL 20 ML INFILTRATE (12:34)
--- NOTE | 2023-04-08 14:56 | PM.OP ---
Procedure Note - Brief Procedure Note - Brief Date of procedure: 04/08/23 Cervical Spinal Stenosis, cervical myelopathy Post-op diagnosis: Same Procedure performed: 1. C3, C4, and C5 laminectomies 2. C3, C4, and C5 lateral mass instrumentation 3. C3, C4, and C5 arthrodesis 4. Use of C-arm for fluoroscopy Surgeon: Tanna Kaiser MD Anesthesia: GETA Findings: Successful PCDF C3-5 without complication Estimated blood loss (mL): 200 Urine output (mL): 300 Drains: Yes Packing: No Pathology: None sent Complications: None Condition: Stable Disposition: PACU
[2023-04-08] MEDS: LACTATED RINGERS 1,000 ML 30 ML IV CONT ×2 (15:00)
--- NOTE | 2023-04-08 15:15 | W.PM.PROC2 ---
Procedure Note - Detailed Date of Procedure 04/08/23 Pre-op Diagnosis Cervical Spinal Stenosis Cervical myelopathy Post-op Diagnosis Same Procedure Performed 1. C3, C4, and C5 laminectomies 2. C3, C4, and C5 lateral mass instrumentation 3. C3, C4, and C5 arthrodesis with autograft 4. Use of C-arm for fluoroscopy Surgeon Tanna Kaiser MD Rack Washer Garth Anesthesia General Indications Mr. Causey is a 77-year-old male with history of DM, HTN who presents to the hospital with about a month of progressive myelopathic symptoms including numbness and weakness of his hands and progressive gait instability to the point of requiring a walker. Imaging revealed severe cervical stenosis with spinal cord compression at C3-4 and C4-5. Surgery in the form of posterior cervical decompression and fusion C3-5 was recommended. Risks including bleeding, pain, infection, weakness, worsening symptoms, paralysis, CSF leak, and anesthetic complications were discussed. The patient provided written informed consent to proceed. Description of Procedure The patient was brought to the operating room where endotracheal anesthesia was induced. The Fernandez headholder was applied, and the patient was transferred to the operating table in the prone position. The head was secured to the bed. All pressure points were padded. The C-arm was used to evaluate the planned incision. The planned surgical site was prepped and draped in usual sterile fashion. Time out was conducted, and local anesthesia was injected. A 10-blade scalpel was used to make the incision. The subcutaneous tissue was dissected with the bovie until the spinous processes were encountered. Self-retaining retractors were placed. A clamp was placed on a spinous process which was confirmed to be the C3 level with the C-arm. The incision was extended inferiorly to better expose down to the inferior level. The muscles were elevated in a subperiosteal fashion to expose the laminae and lateral masses of C3 through C5 bilaterally. The facet joints were exposed and defined with the bovie, and the check pilot holes for the lateral mass screws were created with the high-speed drill. On the right side, the hand drill was used to drill through the lateral mass to a depth of 12mm at C3. The trajectory was palpated with a ball-tip probe to ensure where were no breeches in the bone. The drill was then lengthened to 14mm. The 3.0mm tap was then passes. This was repeated at C4 and C5. Bone wax was placed over the screw holes. This was then repeated on the left side at C3, C4, and C5. No bone breaches were noted at the depth of 14mm. We then turned our attention to the laminectomies. The high-speed drill was used to create a trough through the laminae of C3, C4, and C5. The posterior elements were elevated with a Leksell and Kerrison rongeurs, and the bone was passed off to be morselized for autograft. The ligamentum flavum was elevated with the bone. Small residual pieces of ligamentum and bone were removed with the kerrison. The facet joints were decorticated with the drill.? We ensured hemostasis with the bipolar and Floseal. We next turned our attention to the lateral mass screws. The screw trajectories were palpated again with the balltip probe. 14 x 3.5mm screws were placed at each level bilaterally. 40mm rods were placed followed by set screws which were final tightened. The area was copiously irrigated. Autograft was placed lateral to the screws bilaterally and into the facets. A hemovac drain was placed in the epidural space and tunneled inferiorly. The muscle was approximated with 0 vicryl. The fascia was closed with 0 vicryl as well. The dermis was closed with 2-0 and 3-0 vicryl. The skin was closed with running 3-0 nylon. The drain was secured with a nylon as well. Sterile dressings were placed. The patient was then removed from the [place] headholder and returned supine. The patient was extubated and transferred to the PACU in stable conditio
[2023-04-08 15:28] LABS: Glucose Point of Care 137 mg/dl (65-105)
--- NOTE | 2023-04-08 15:32 | SUR.PHASEI ---
1530 - DR. TSE AT BEDSIDE
[2023-04-08] MEDS: oxyCODONE HCL (*CRX) 5 MG TAB IR PO (16:30)
[2023-04-08] MEDS: ACETAMINOPHEN 500 MG TABLET 1000 MG PO ×2 (16:30→21:25)
[2023-04-08] MEDS: SODIUM CHLORIDE 0.9% IV 1,000 ML 100 ML IV CONT (16:30)
[2023-04-08] MEDS: GABAPENTIN 300 MG CAPSULE PO (16:31)
[2023-04-08 17:08] LABS: Glucose Point of Care 155 mg/dl (65-105)
--- NOTE | 2023-04-08 17:19 | PC.NURSE ---
Pt back to floor from surgery angry and confused. Multiple attempts at re-orientation made by this nurse. Pt refusing to eat. Pt asking for this nurse to call . Will call her to update.
[2023-04-08] MEDS: oxyCODONE HCL (*CRX) 5 MG TAB IR 10 MG PO (21:25)
[2023-04-08] MEDS: DOCUSATE SODIUM 100 MG CAPSULE PO (21:25)
[2023-04-08] MEDS: LOVASTATIN 20 MG TABLET 40 MG PO (21:25)
[2023-04-08] MEDS: TAMSULOSIN HCL 0.4 MG CAPSULE PO (21:26)
[2023-04-08] MEDS: FINASTERIDE 5 MG TABLET PO (21:26)
[2023-04-08 21:32] LABS: Glucose Point of Care 186 mg/dl (65-105)
[2023-04-09] VITALS (8 sets, daily range): BP systolic 108–140; BP diastolic 43–79; PULSE 60–83; RESP 14–18; TEMP 36.4–37.1; O2SAT 95–100
[2023-04-09] MEDS: CYCLOBENZAPRINE HCL 10 MG TABLET PO ×2 (00:21→16:58)
[2023-04-09] MEDS: ceFAZolin 2 GM/D5W 50 ML 2 GM/50 ML BAG IVPB ×3 (03:47→20:44)
[2023-04-09] MEDS: ACETAMINOPHEN 500 MG TABLET 1000 MG PO ×4 (03:47→20:48)
[2023-04-09] MEDS: oxyCODONE HCL (*CRX) 5 MG TAB IR 10 MG PO (03:47)
[2023-04-09 06:45] LABS: Basophils Percent Auto 0.3 % (0.2-1.2); Eosinophils Percent Auto 0.1 % (0-4.4); Hematocrit 36.5 % (42.0-52.0); Hemoglobin 11.6 g/dL (14.0-18.0); Immature Granulocyte Absolute 0.07 K/mm3 (0.00-0.031); Immature Granulocyte Percent A 0.5 % (0-0.5); Lymphocytes Absolute Auto 0.98 K/mm3 (0.9-3.2); Lymphocytes Percent Auto 6.4 % (18.3-44.2); Mean Corpuscular HGB Conc 31.8 g/dl (32-36); Mean Corpuscular Hemoglobin 29.2 pg (26-34); Mean Corpuscular Volume 91.9 fl (80-100); Mean Platelet Volume 10.7 fl (7.4-10.4); Monocytes Absolute Auto 2.8 K/mm3 (0.1-0.6); Monocytes Percent Auto 18.3 % (2.6-8.5); Neutrophils Absolute Auto 11.4 K/mm3 (1.3-6.7); Neutrophils Percent Auto 74.4 % (45.5-73.1); Platelet Count Result 201 k/mm3 (150-375); Red Blood Count 3.97 M/mm3 (4.6-6.20); Red Cell Distribution Width 13.9 % (11.5-14.5); White Blood Count 15.3 K/mm3 (4.5-10.0)
[2023-04-09 06:58] LABS: Albumin Level 3.6 g/dL (3.5-5.1); Anion Gap 5 mmol/L (8-16); Blood Urea Nitrogen 28 mg/dL (9-20); Carbon Dioxide 27 mmol/L (22-30); Chloride 105 mmol/L (98-107); Estimated CRCL calculation 75 ml/min; Estimated Glomerular Filt Rate > 60; Glucose 102 mg/dL (65-110); Potassium 4.2 mmol/L (3.4-5.0); Sodium 137 mmol/L (137-145)
[2023-04-09 07:55] LABS: Glucose Point of Care 84 mg/dl (65-105)
[2023-04-09] MEDS: lisinopriL 20 MG TABLET 40 MG PO (08:25)
[2023-04-09] MEDS: MULTIVITAMINS THERAPEUTIC TAB (*BKC) 1 TABLET PO (08:25)
[2023-04-09] MEDS: GABAPENTIN 300 MG CAPSULE PO ×3 (08:26→16:40)
[2023-04-09] MEDS: EMPAGLIFLOZIN 25 MG TABLET PO (08:26)
[2023-04-09] MEDS: amLODIPine BESYLATE 5 MG TABLET 10 MG PO (08:26)
[2023-04-09] MEDS: metFORMIN HCL 500 MG TABLET 1000 MG PO ×2 (08:26→16:45)
[2023-04-09] MEDS: DOCUSATE SODIUM 100 MG CAPSULE PO ×2 (08:26→20:47)
[2023-04-09] MEDS: GLIMEPIRIDE 2 MG TABLET 4 MG PO ×2 (08:26→16:45)
[2023-04-09] MEDS: METOPROLOL TARTRATE 25 MG TABLET PO ×2 (08:28→20:47)
[2023-04-09] MEDS: SODIUM CHLORIDE 0.9% IV 1,000 ML 100 ML IV CONT (08:33)
--- NOTE | 2023-04-09 10:34 | PM.IMPN ---
Progress Note: A&P Assessment and Plan (1) Cervical spinal stenosis: Code(s): M48.02 - Spinal stenosis, cervical region Status: Acute Assessment and Plan: Bilateral hand numbness ongoing for weeks, cervical stenosis with cord compression on MRI from outside hospital obtained 04/03 which prompted admission. 04/08: going for surgery with Dr Kaiser at 11 am 04/09: POD 1, recovering well. Tolerating a diet. Pain is controlled with prn medications and bowel regimen is ordered. (2) Cervical myelopathy: Code(s): G95.9 - Disease of spinal cord, unspecified Status: Acute Assessment and Plan: See 1 (3) Diabetes: Code(s): E11.9 - Type 2 diabetes mellitus without complications Status: Acute Assessment and Plan: Type 2, ACHS fingerstick glucose with correction insulin, resume home medications (glimepiride and metformin). Blood sugars reviewed on 04/09 (4) Arthritis: Code(s): M19.90 - Unspecified osteoarthritis, unspecified site Status: Acute Assessment and Plan: osteoarthritis to left knee causing pain and falls Acetaminophen and norco for pain PT/OT. (5) HTN (hypertension): Code(s): I10 - Essential (primary) hypertension Status: Acute Assessment and Plan: Stable. Continue home medications. Blood pressure reviewed on 04/08 (6) BPH (benign prostatic hyperplasia): Code(s): N40.0 - Benign prostatic hyperplasia without lower urinary tract symptoms Status: Acute Assessment and Plan: Stable, patient denies urinary incontinence except for one time he could not ambulate with walker fast enough to the bathroom when he knew he had to go. Will continue home medication and obtain post void bladder scan twice to assess for urinary retention. (7) Leg weakness, bilateral: Code(s): R29.898 - Other symptoms and signs involving the musculoskeletal system Status: Acute Assessment and Plan: Left knee osteoarthritis with significant pain but no joint swelling, erythema, warmth or tenderness. Right knee prior partial knee replacement. Negative straight leg raise, 4-5/5 strength bilateral, equal sensation bilateral, no urinary retention or overflow incontinence and no bowel changes, no lumbar back tenderness. Weak from being in bed, will need extensive rehab. Up to chair and commode with assist, maybe use sit to stand for safety. PT consulted for transfers work, OT pending post operative assessment. (8) Frequent falls: Code(s): R29.6 - Repeated falls Status: Acute Assessment and Plan: See 7 Plan SCDs for VTE prophylaxis, anticoagulation on hold for surgery Code status: Full Code Awaiting disposition recommendations from PT/OT. Hoping to d/c tomorrow. Subjective Date/time seen: 04/09/23 10:34 Interval history: HPI obtained from the chart, 04/04: This is a 77-year-old male patient with past drift history of hypertension, type 2 diabetes, BPH hyperlipidemia arthritis who is admitted to the hospital for bilateral hand numbness, weakness in his legs bilaterally with frequent falls and left knee pain from progressive osteoarthritis.? Patient has been experiencing several falls recently reports that his bilateral hands and arms have become numb ongoing for the last several weeks.? He has also had numbness starting to bilateral toes but not progressing any further.? Patient reports that bilateral leg weakness has caused him to need to use a walker for the about the last 1 month.? Patient reports he has left knee [id number] arthritis for which she was seeing his orthopedic surgeon when the surgeon told him he needed to get MRIs of the neck and low back based on his current complaints.? Patient did get MRI completed at [facility] and when the results came back to the orthopedic surgeon regarding spinal stenosis with cord compression patient was immediately referred to our emergency department for admission. 1
--- NOTE | 2023-04-09 11:33 | WPDNEUROSGPN ---
Progress Note: A&P Assessment and Plan (1) Cervical myelopathy: Code(s): G95.9 - Disease of spinal cord, unspecified Status: Acute Plan Neurologically stable post cervical decompression and fusion for myelopathy Pain control reasonable Continue to mobilize with PT/OT Given myelopathy anticipate need for rehab at d/c Subjective Date/time seen: 04/09/23 11:33 Interval history: patient notes improved upper extremity dexterity pulled drain out overnight working with PT/OT Pain control reasonable Exam Narrative: Awake alert oriented x 3 Speech CF HAYDEE eOMI Face= TML MAEW with good strength Ataxic gait c/w myelopathy Incision / dressing CDI Objective Data Vital Signs Vital Signs: Vital Signs - 24 hr 04/08/23 15:00 04/08/23 15:15 04/08/23 15:30 Temperature 97.2 F L Pulse Rate 76 83 90 Respiratory Rate 23 H 20 20 Blood Pressure 117/56 L 120/59 L 120/58 L Pulse Oximetry 100 100 100 Oxygen Delivery Simple Face Mask Simple Face Mask Simple Face Mask Oxygen Flow Rate 8 8 8 04/08/23 15:45 04/08/23 16:00 04/08/23 16:20 Temperature 97.2 F L Pulse Rate 100 99 98 Respiratory Rate 18 20 16 Blood Pressure 130/60 130/60 133/61 Pulse Oximetry 98 99 99 Oxygen Delivery Room Air Room Air Oxygen Flow Rate 04/08/23 16:35 04/08/23 17:10 04/08/23 18:10 Temperature 97.5 F L 97.7 F 97.6 F Pulse Rate 95 93 92 Respiratory Rate 18 16 18 Blood Pressure 107/62 126/59 L 120/63 Pulse Oximetry 99 100 98 Oxygen Delivery Oxygen Flow Rate 04/08/23 21:26 04/08/23 21:37 04/09/23 00:59 Temperature 97.2 F L 97.6 F Pulse Rate 88 88 67 Respiratory Rate 16 14 Blood Pressure 124/51 L 108/79 Pulse Oximetry 100 95 Oxygen Delivery Oxygen Flow Rate 04/09/23 02:03 04/09/23 08:28 04/09/23 08:00 Temperature 98.5 F Pulse Rate 63 76 Respiratory Rate 14 Blood Pressure 121/51 L Pulse Oximetry 100 Oxygen Delivery Room Air Oxygen Flow Rate 04/09/23 10:00 04/09/23 10:54 Temperature 98.4 F Pulse Rate 60 Respiratory Rate 18 Blood Pressure 130/49 L Pulse Oximetry 100 Oxygen Delivery Room Air Oxygen Flow Rate Intake/Output Intake/Output: Intake & Output 04/06/23 04/07/23 04/08/23 04/09/23 23:59 23:59 23:59 23:59 Intake Total 1620 8675 698 4290 Output Total 1825 1350 1775 1380 Balance -205 584 -4014 679 Meds/Results Medications: Active Medications Generic Name Dose Route Start Last Admin Trade Name Freq PRN Reason Stop Dose Admin Acetaminophen 1,000 mg 04/08/23 15:05 04/09/23 08:26 Acetaminophen 500 Mg Tablet PO 1,000 mg Q6H ESPINOZA Administration Al Hydrox/Mg Hydrox/Simethicone 20 ml 04/08/23 15:03 Mag Hydrox/Al Hydrox/Simeth 30 Ml Udc PO Q4H PRN Indigestion/Heartburn Amlodipine Besylate 10 mg 04/04/23 09:00 04/09/23 08:26 Amlodipine Besylate 5 Mg Tablet PO 10 mg DAILY ESPINOZA Administration Bisacodyl 10 mg 04/08/23 15:03 Bisacodyl 10 Mg Suppository RECTAL DAILY PRN Constipation Cyclobenzaprine HCl 10 mg 04/08/23 15:03 04/09/23 00:21 Cyclobenzaprine Hcl 10 Mg Tablet PO 10 mg TID PRN Administration Muscle Spasms Dextrose 12.5 gm 04/04/23 02:01 Dextrose 50% 25 Gm/50 Ml Syringe IV PUSH PRN PRN Hypoglycemia Protocol Docusate Sodium 100 mg 04/08/23 21:00 04/09/23 08:26 Docusate Sodium 100 Mg Capsule PO 100 mg Q12HR ESPINOZA Administration Empagliflozin 25 mg 04/04/23 09:00 04/09/23 08:26 Empagliflozin 25 Mg Tablet PO 25 mg QAM ESPINOZA Administration Finasteride 5 mg 04/04/23 02:00 04/08/23 21:26 Finasteride 5 Mg Tablet PO 5 mg HS ESPINOZA Administration Gabapentin 300 mg 04/04/23 02:00 04/09/23 08:26 Gabapentin 300 Mg Capsule PO 300 mg TID ESPINOZA Administration Glimepiride 4 mg 04/04/23 09:00 04/09/23 08:26 Glimepiride 2 Mg Tablet PO 05/04/23 08:59 4 mg BID ESPINOZA Administration Glucagon 1 mg 04/04/23 02:01
[2023-04-09 11:37] LABS: Glucose Point of Care 211 mg/dl (65-105)
[2023-04-09] MEDS: INSULIN ASPART (*BKC) 100 UNITS/ML SUB-Q ×2 (12:54→20:56)
[2023-04-09] MEDS: oxyCODONE HCL (*CRX) 5 MG TAB IR PO (12:58)
--- NOTE | 2023-04-09 14:23 | WPDANESPN ---
Anes - Prog Note Post-Op Date/Time: 04/09/23 14:23 Cardiovascular status: normal Respiratory status: normal Airway patency: baseline Mental status: baseline Post-Op hydration status: normal Vital Signs: Last Vital Signs Temp 37.1 C 04/09/23 13:58 Pulse 70 04/09/23 13:58 Resp 18 04/09/23 13:58 BP 113/43 L 04/09/23 13:58 Pulse Ox 100 04/09/23 13:58 O2 Del Method Room Air 04/09/23 11:37 O2 Flow Rate 8 04/08/23 15:30 Pain Score (VAS): pt sleeping comfortably I/O: Intake & Output 04/08/23 04/09/23 04/09/23 23:59 07:59 15:59 Intake Total 150 1400 1152 Output Total 980 400 Balance 150 420 752 Laboratory Tests 04/09/23 06:02 04/09/23 06:02 04/08/23 04/08/23 04/08/23 15:04 16:56 20:40 WBC RBC Hgb Hct MCV MCH MCHC RDW Plt Count MPV Immature Gran % (Auto) Neut % (Auto) Lymph % (Auto) [place] % (Auto) Eos % (Auto) Baso % (Auto) Lymph # (Auto) [place] # (Auto) Eos # (Auto) Baso # (Auto) Abs Immat Gran (auto) Absolute Neuts (auto) Absolute Nucleated RBC Nucleated RBC % Sodium Potassium Chloride Carbon Dioxide Anion Gap BUN Creatinine Estim Creat Clear Calc Estimated GFR Glucose POC Capillary Glucose 137 H 155 H 186 H Calcium Phosphorus Albumin 04/09/23 04/09/23 04/09/23 06:02 07:48 11:34 WBC 15.3 H RBC 3.97 L Hgb 11.6 L Hct 36.5 L MCV 91.9 MCH 29.2 MCHC 31.8 L RDW 13.9 Plt Count 201 MPV 10.7 H Immature Gran % (Auto) 0.5 Neut % (Auto) 74.4 H Lymph % (Auto) 6.4 L [place] % (Auto) 18.3 H Eos % (Auto) 0.1 Baso % (Auto) 0.3 Lymph # (Auto) 0.98 [place] # (Auto) 2.8 H Eos # (Auto) 0.0 Baso # (Auto) 0.0 Abs Immat Gran (auto) 0.07 H Absolute Neuts (auto) 11.4 H Absolute Nucleated RBC 0.0 Nucleated RBC % 0.0 Sodium 137 Potassium 4.2 Chloride 105 Carbon Dioxide 27 Anion Gap 5 L BUN 28 H Creatinine 0.60 L Estim Creat Clear Calc 75 Estimated GFR > 60 Glucose 102 POC Capillary Glucose 84 211 H Calcium 9.0 Phosphorus 4.0 Albumin 3.6 Post-procedural complaints: none Patient Feedback: Patient satisfied with anesthetic care.
[2023-04-09 16:42] LABS: Glucose Point of Care 168 mg/dl (65-105)
[2023-04-09] MEDS: LOVASTATIN 20 MG TABLET 40 MG PO (20:47)
[2023-04-09] MEDS: TAMSULOSIN HCL 0.4 MG CAPSULE PO (20:47)
[2023-04-09] MEDS: FINASTERIDE 5 MG TABLET PO (20:48)
[2023-04-09 21:58] LABS: Glucose Point of Care 201 mg/dl (65-105)
[2023-04-10] MEDS: ACETAMINOPHEN 500 MG TABLET 1000 MG PO ×4 (02:54→20:09)
[2023-04-10] MEDS: ceFAZolin 2 GM/D5W 50 ML 2 GM/50 ML BAG IVPB (02:54)
[2023-04-10 06:40] VITALS: BP 123/49; PULSE 66; RESP 14; TEMP 36.5; O2SAT 97
[2023-04-10 07:20] LABS: Basophils Percent Auto 0.2 % (0.2-1.2); Eosinophils Absolute Auto 0.1 K/mm3 (0-0.3); Eosinophils Percent Auto 0.6 % (0-4.4); Hematocrit 38.6 % (42.0-52.0); Hemoglobin 12.2 g/dL (14.0-18.0); Immature Granulocyte Absolute 0.08 K/mm3 (0.00-0.031); Immature Granulocyte Percent A 0.6 % (0-0.5); Lymphocytes Absolute Auto 0.66 K/mm3 (0.9-3.2); Lymphocytes Percent Auto 4.6 % (18.3-44.2); Mean Corpuscular HGB Conc 31.6 g/dl (32-36); Mean Corpuscular Hemoglobin 28.9 pg (26-34); Mean Corpuscular Volume 91.5 fl (80-100); Mean Platelet Volume 11.1 fl (7.4-10.4); Monocytes Absolute Auto 2.8 K/mm3 (0.1-0.6); Monocytes Percent Auto 19.5 % (2.6-8.5); Neutrophils Absolute Auto 10.8 K/mm3 (1.3-6.7); Neutrophils Percent Auto 74.5 % (45.5-73.1); Platelet Count Result 181 k/mm3 (150-375); Red Blood Count 4.22 M/mm3 (4.6-6.20); Red Cell Distribution Width 14.3 % (11.5-14.5); White Blood Count 14.4 K/mm3 (4.5-10.0)
[2023-04-10 07:36] LABS: Glucose Point of Care 105 mg/dl (65-105)
[2023-04-10 07:39] LABS: Albumin Level 3.6 g/dL (3.5-5.1); Anion Gap 5 mmol/L (8-16); Blood Urea Nitrogen 20 mg/dL (9-20); Calcium 8.9 mg/dL (8.4-10.2); Carbon Dioxide 29 mmol/L (22-30); Chloride 104 mmol/L (98-107); Estimated CRCL calculation 88 ml/min; Estimated Glomerular Filt Rate > 60; Glucose 77 mg/dL (65-110); Phosphorus 2.2 mg/dL (2.5-4.5); Potassium 3.7 mmol/L (3.4-5.0); Sodium 138 mmol/L (137-145)
[2023-04-10] MEDS: GLIMEPIRIDE 2 MG TABLET 4 MG PO ×2 (08:09→17:56)
[2023-04-10] MEDS: GABAPENTIN 300 MG CAPSULE PO ×3 (08:09→17:56)
[2023-04-10] MEDS: EMPAGLIFLOZIN 25 MG TABLET PO (08:09)
[2023-04-10] MEDS: METOPROLOL TARTRATE 25 MG TABLET PO ×2 (08:10→20:09)
[2023-04-10] MEDS: DOCUSATE SODIUM 100 MG CAPSULE PO ×2 (08:10→20:09)
[2023-04-10] MEDS: metFORMIN HCL 500 MG TABLET 1000 MG PO ×2 (08:10→17:56)
[2023-04-10] MEDS: lisinopriL 20 MG TABLET 40 MG PO (08:10)
[2023-04-10] MEDS: amLODIPine BESYLATE 5 MG TABLET 10 MG PO (08:10)
[2023-04-10] MEDS: MULTIVITAMINS THERAPEUTIC TAB (*BKC) 1 TABLET PO (08:10)
--- NOTE | 2023-04-10 10:30 | PCNWS ---
Weekly nutritional screen. Patient is tolerating current diet with adequate intake. No weight loss reported. No nutritional needs at this time.
--- NOTE | 2023-04-10 10:31 | PM.IMPN ---
Progress Note: A&P Assessment and Plan (1) Cervical spinal stenosis: Code(s): M48.02 - Spinal stenosis, cervical region Status: Acute Assessment and Plan: Bilateral hand numbness ongoing for weeks, cervical stenosis with cord compression on MRI from outside hospital obtained 04/03 which prompted admission. 04/08: going for surgery with Dr Kaiser at 11 am 112: POD 1, recovering well. Tolerating a diet. Pain is controlled with prn medications and bowel regimen is ordered. 04/10: POD 2. No acute changes. (2) Cervical myelopathy: Code(s): G95.9 - Disease of spinal cord, unspecified Status: Acute Assessment and Plan: See 1 (3) Diabetes: Code(s): E11.9 - Type 2 diabetes mellitus without complications Status: Acute Assessment and Plan: Type 2, AC/HS fingerstick glucose with correction insulin, resume home medications (glimepiride and metformin). Blood sugars reviewed on 04/10 (4) Arthritis: Code(s): M19.90 - Unspecified osteoarthritis, unspecified site Status: Acute Assessment and Plan: osteoarthritis to left knee causing pain and falls Acetaminophen and norco for pain PT/OT. (5) HTN (hypertension): Code(s): I10 - Essential (primary) hypertension Status: Acute Assessment and Plan: Stable. Continue home medications. Blood pressure reviewed on 04/08 (6) BPH (benign prostatic hyperplasia): Code(s): N40.0 - Benign prostatic hyperplasia without lower urinary tract symptoms Status: Acute Assessment and Plan: Stable, patient denies urinary incontinence except for one time he could not ambulate with walker fast enough to the bathroom when he knew he had to go. Will continue home medication and obtain post void bladder scan twice to assess for urinary retention. (7) Leg weakness, bilateral: Code(s): R29.898 - Other symptoms and signs involving the musculoskeletal system Status: Acute Assessment and Plan: Left knee osteoarthritis with significant pain but no joint swelling, erythema, warmth or tenderness. Right knee prior partial knee replacement. Negative straight leg raise, 4-5/5 strength bilateral, equal sensation bilateral, no urinary retention or overflow incontinence and no bowel changes, no lumbar back tenderness. Weak from being in bed, will need extensive rehab. Up to chair and commode with assist, maybe use sit to stand for safety. PT consulted for transfers work, OT pending post operative assessment. (8) Frequent falls: Code(s): R29.6 - Repeated falls Status: Acute Assessment and Plan: See 7 Plan SCDs for VTE prophylaxis, anticoagulation on hold for surgery Code status: Full Code Subjective Date/time seen: 04/10/23 10:31 Interval history: HPI obtained from the chart, 04/04: This is a 77-year-old male patient with past drift history of hypertension, type 2 diabetes, BPH hyperlipidemia arthritis who is admitted to the hospital for bilateral hand numbness, weakness in his legs bilaterally with frequent falls and left knee pain from progressive osteoarthritis.? Patient has been experiencing several falls recently reports that his bilateral hands and arms have become numb ongoing for the last several weeks.? He has also had numbness starting to bilateral toes but not progressing any further.? Patient reports that bilateral leg weakness has caused him to need to use a walker for the about the last 1 month.? Patient reports he has left knee [id number] arthritis for which she was seeing his orthopedic surgeon when the surgeon told him he needed to get MRIs of the neck and low back based on his current complaints.? Patient did get MRI completed at [facility] and when the results came back to the orthopedic surgeon regarding spinal stenosis with cord compression patient was immediately referred to our emergency department for admission. 04/05: Patient admitted for hand numb
[2023-04-10 11:25] LABS: Glucose Point of Care 192 mg/dl (65-105)
[2023-04-10 14:00] VITALS: BP 121/57; PULSE 82; RESP 15; TEMP 36.9; O2SAT 100
[2023-04-10] MEDS: oxyCODONE HCL (*CRX) 5 MG TAB IR 10 MG PO (14:16)
[2023-04-10 16:35] LABS: Glucose Point of Care 165 mg/dl (65-105)
[2023-04-10 20:00] VITALS: PULSE 82; RESP 15; O2SAT 100
[2023-04-10] MEDS: TAMSULOSIN HCL 0.4 MG CAPSULE PO (20:09)
[2023-04-10] MEDS: LOVASTATIN 20 MG TABLET 40 MG PO (20:09)
[2023-04-10] MEDS: FINASTERIDE 5 MG TABLET PO (20:09)
[2023-04-10 20:56] LABS: Glucose Point of Care 195 mg/dl (65-105)
[2023-04-10 22:00] VITALS: BP 123/52; PULSE 85; RESP 18; TEMP 36.2; O2SAT 95
[2023-04-11] MEDS: ACETAMINOPHEN 500 MG TABLET 1000 MG PO ×2 (02:44→09:44)
[2023-04-11 05:43] LABS: Basophils Percent Auto 0.2 % (0.2-1.2); Eosinophils Absolute Auto 0.1 K/mm3 (0-0.3); Eosinophils Percent Auto 1.1 % (0-4.4); Hemoglobin 11.6 g/dL (14.0-18.0); Immature Granulocyte Absolute 0.08 K/mm3 (0.00-0.031); Immature Granulocyte Percent A 0.6 % (0-0.5); Lymphocytes Absolute Auto 0.69 K/mm3 (0.9-3.2); Lymphocytes Percent Auto 5.5 % (18.3-44.2); Mean Corpuscular HGB Conc 31.4 g/dl (32-36); Mean Corpuscular Hemoglobin 28.9 pg (26-34); Mean Corpuscular Volume 92.3 fl (80-100); Monocytes Absolute Auto 2.2 K/mm3 (0.1-0.6); Monocytes Percent Auto 17.6 % (2.6-8.5); Neutrophils Absolute Auto 9.4 K/mm3 (1.3-6.7); Platelet Count Result 185 k/mm3 (150-375); Red Blood Count 4.01 M/mm3 (4.6-6.20); Red Cell Distribution Width 14.2 % (11.5-14.5); White Blood Count 12.5 K/mm3 (4.5-10.0)
[2023-04-11 05:56] LABS: Albumin Level 3.4 g/dL (3.5-5.1); Anion Gap 4 mmol/L (8-16); Blood Urea Nitrogen 22 mg/dL (9-20); Carbon Dioxide 30 mmol/L (22-30); Chloride 104 mmol/L (98-107); Estimated CRCL calculation 88 ml/min; Estimated Glomerular Filt Rate > 60; Glucose 82 mg/dL (65-110); Phosphorus 2.4 mg/dL (2.5-4.5); Potassium 3.6 mmol/L (3.4-5.0); Sodium 138 mmol/L (137-145)
[2023-04-11 06:00] VITALS: BP 112/59; PULSE 69; RESP 18; TEMP 36; O2SAT 99
[2023-04-11 07:40] LABS: Glucose Point of Care 72 mg/dl (65-105)
--- NOTE | 2023-04-11 08:13 | PM.DS ---
DS: Admitting Diagnosis Discharge Date 04/11 Admitting Diagnosis bilateral hand numbness DS: Discharge Diagnosis Discharge Diagnosis (1) Cervical spinal stenosis: Code(s): M48.02 - Spinal stenosis, cervical region Status: Acute Assessment and Plan: Bilateral hand numbness ongoing for weeks, cervical stenosis with cord compression on MRI from outside hospital obtained 04/03 which prompted admission. 04/08: going for surgery with Dr Kaiser at 11 am 11: POD 1, recovering well. Tolerating a diet. Pain is controlled with prn medications and bowel regimen is ordered. 04/10: POD 2. No acute changes. (2) Cervical myelopathy: Code(s): G95.9 - Disease of spinal cord, unspecified Status: Acute Assessment and Plan: See 1 (3) Diabetes: Code(s): E11.9 - Type 2 diabetes mellitus without complications Status: Acute Assessment and Plan: Type 2, AC/HS fingerstick glucose with correction insulin, resume home medications (glimepiride and metformin). Blood sugars reviewed on 04/10 (4) Arthritis: Code(s): M19.90 - Unspecified osteoarthritis, unspecified site Status: Acute Assessment and Plan: osteoarthritis to left knee causing pain and falls Acetaminophen and norco for pain PT/OT. (5) HTN (hypertension): Code(s): I10 - Essential (primary) hypertension Status: Acute Assessment and Plan: Stable. Continue home medications. Blood pressure reviewed on 04/08 (6) BPH (benign prostatic hyperplasia): Code(s): N40.0 - Benign prostatic hyperplasia without lower urinary tract symptoms Status: Acute Assessment and Plan: Stable, patient denies urinary incontinence except for one time he could not ambulate with walker fast enough to the bathroom when he knew he had to go. Will continue home medication and obtain post void bladder scan twice to assess for urinary retention. (7) Leg weakness, bilateral: Code(s): R29.898 - Other symptoms and signs involving the musculoskeletal system Status: Acute Assessment and Plan: Left knee osteoarthritis with significant pain but no joint swelling, erythema, warmth or tenderness. Right knee prior partial knee replacement. Negative straight leg raise, 4-5/5 strength bilateral, equal sensation bilateral, no urinary retention or overflow incontinence and no bowel changes, no lumbar back tenderness. Weak from being in bed, will need extensive rehab. Up to chair and commode with assist, maybe use sit to stand for safety. PT consulted for transfers work, OT pending post operative assessment. (8) Frequent falls: Code(s): R29.6 - Repeated falls Status: Acute Assessment and Plan: See 7 Plan SCDs for VTE prophylaxis, anticoagulation on hold for surgery Code status: Full Code DS: Summary Hospital Course Hospital Course: HPI obtained from the chart, 04/04: This is a 77-year-old male patient with past drift history of hypertension, type 2 diabetes, BPH hyperlipidemia arthritis who is admitted to the hospital for bilateral hand numbness, weakness in his legs bilaterally with frequent falls and left knee pain from progressive osteoarthritis.? Patient has been experiencing several falls recently reports that his bilateral hands and arms have become numb ongoing for the last several weeks.? He has also had numbness starting to bilateral toes but not progressing any further.? Patient reports that bilateral leg weakness has caused him to need to use a walker for the about the last 1 month.? Patient reports he has left knee [id number] arthritis for which she was seeing his orthopedic surgeon when the surgeon told him he needed to get MRIs of the neck and low back based on his current complaints.? Patient did get MRI completed at [facility] and when the results came back to the orthopedic surgeon regarding spinal stenosis with cord compression patient was immediately referred to o
[2023-04-11] MEDS: oxyCODONE HCL (*CRX) 5 MG TAB IR PO (08:53)
[2023-04-11] MEDS: GLIMEPIRIDE 2 MG TABLET 4 MG PO (09:44)
[2023-04-11] MEDS: amLODIPine BESYLATE 5 MG TABLET 10 MG PO (09:44)
[2023-04-11] MEDS: metFORMIN HCL 500 MG TABLET 1000 MG PO (09:45)
[2023-04-11] MEDS: METOPROLOL TARTRATE 25 MG TABLET PO (09:45)
[2023-04-11] MEDS: GABAPENTIN 300 MG CAPSULE PO ×2 (09:45→12:09)
[2023-04-11] MEDS: MULTIVITAMINS THERAPEUTIC TAB (*BKC) 1 TABLET PO (09:45)
[2023-04-11] MEDS: EMPAGLIFLOZIN 25 MG TABLET PO (09:45)
[2023-04-11] MEDS: lisinopriL 20 MG TABLET 40 MG PO (09:45)
[2023-04-11] MEDS: DOCUSATE SODIUM 100 MG CAPSULE PO (09:45)
[2023-04-11 11:19] LABS: Glucose Point of Care 194 mg/dl (65-105)
== END 2023-04-11 14:50 | DRG 472 ==
LOC: ANHED 18:45 → ANH3MEDSUR 21:04
PROVIDERS: Neurological Surgery; Nurse Practitioner; Admitting Provider Internal Medicine; Emergency Provider Emergency Medicine; PCP Internal Medicine; Visit Provider Nurse Practitioner Acute Care
PROC: 0RG207J Fusion of 2 or more Cervical Vertebral Joints with Autologous Tissue Substitute, Posterior Approach, Anterior Column, Open Approach (ICD-10-PCS; principal; 2023-04-08 11:00)
DX: M48.02 Spinal stenosis, cervical region (principal); G95.89 Other specified diseases of spinal cord; E11.9 Type 2 diabetes mellitus without complications; M17.12 Unilateral primary osteoarthritis, left knee; N40.0 Benign prostatic hyperplasia without lower urinary tract symptoms; R29.6 Repeated falls; E78.5 Hyperlipidemia, unspecified; I10 Essential (primary) hypertension; Z87.891 Personal history of nicotine dependence
CPT/HCPCS: 36415; 71045; 72125; 80053; 80069; 82607; 82728; 82746; 82948; 83540; 83550; 85025; 85610; 85730; 93005; 97110; 97116; 97161; 97166; 97530; 97535; 99199; 99285; A9270; C1713; G0378; J0690; J1100; J1650; J1815; J2270; J2371; J2405; J2704; J3010; J7030; J7120

== ENCOUNTER 2023-09-14 08:30 | Outpatient (CLI) | payer MEDICARE, OTHER, SELFPAY ==
--- NOTE | ~2023-09-14 | XR_ITS ---
Supine and upright views of the abdomen Clinical history: Kidney stone Findings: Bowel gas pattern is nonspecific. No evidence for obstruction or free air. There is a 1.7 c m round calcification right upper quadrant. Osseous structures are intact. Impression: 1.7 cm right upper quadrant calcification. Consider bowel contents or gallstone. Renal stone protocol to be less likely, though not excluded. Reviewed, dictated and finalized at location . Impression: 1.7 cm right upper quadrant calcification. Consider bowel contents or gallstone . Renal stone protocol to be less likely, though not excluded.
== END 2023-09-14 08:31 | disposition home or self-care (01) ==
PROVIDERS: PCP Internal Medicine; Visit Provider Urology
DX: N20.0 Calculus of kidney (principal)
CPT/HCPCS: 74018

== ENCOUNTER 2023-09-23 14:23 | Outpatient (CLI) | payer MEDICARE, OTHER, SELFPAY ==
--- NOTE | ~2023-09-23 | CT_ITS ---
EXAMINATION: CT abdomen pelvis wo con DATE: 09/23/2023 15:05 INDICATION: Calcium kidney stones. TECHNIQUE: Computed tomography (CT) of the abdomen and pelvis was performed without intravenous contr ast. Automated exposure control and iterative reconstruction technique were employed. The dose-length product was 210.68 mGy-cm. COMPARISON: None. FINDINGS: The visualized portions of the lung bases demonstrate mild atelectasis. No pleural effusion . The heart size is normal. There are coronary artery calcifications. No pericardial effusion. The li kyle and spleen are normal. There is a gallstone in the gallbladder, which is normal in size. The panc reas, adrenal glands, and right kidney are normal. There is a 3.0 cm cyst in left kidney. There is mi ld left hydronephrosis. The prostate is mildly enlarged. There are no dilated loops of bowel. The ching endix is not visualized normal. There is calcified atherosclerosis of the aorta and many of the other arteries. There are no pathologically enlarged lymph nodes. There is no free intraperitoneal fluid. There is an old healed fracture of proximal left femur. There is lumbar levoscoliosis and severe spon dylosis IMPRESSION: 1. Mild left hydronephrosis. No urolithiasis. Reviewed, dictated and finalized at location E.
== END 2023-09-23 14:24 | disposition home or self-care (01) ==
PROVIDERS: PCP Internal Medicine; Visit Provider Urology
DX: N20.0 Calculus of kidney (principal)
CPT/HCPCS: 74176

== ENCOUNTER 2023-11-16 11:10 | Outpatient (CLI) | payer MEDICARE, OTHER, SELFPAY ==
--- NOTE | ~2023-11-16 | XR_ITS ---
Cervical Spine: AP, lateral, open-mouth views Clinical History: Pain Findings: There is posterior fusion from C3 through C5. There is severe degenerative disc narrowing a t C5-C6. There is moderate degenerative disc narrowing at C6-C7. There is moderate to advanced facet arthropathy throughout the cervical spine. Probable underlying minimal grade 1 anterolisthesis of C4 over C5. No acute fracture seen. Pre-vertebral soft tissues are unremarkable. Impression: Advanced degenerative spondylosis, as above. Posterior fusion from C3 through C5, with probable underlying minimal grade 1 anterolisthesis of C4 o kyle C5. Reviewed, dictated and finalized at location . Impression: Advanced degenerative spondylosis, as above. Posterior fusion from C3 through C5, with probable underlying minimal grade 1 a nterolisthesis of C4 over C5.
== END 2023-11-16 11:11 | disposition home or self-care (01) ==
PROVIDERS: PCP Internal Medicine; Visit Provider Neurological Surgery
DX: M48.02 Spinal stenosis, cervical region (principal); G95.9 Disease of spinal cord, unspecified; Z98.1 Arthrodesis status
CPT/HCPCS: 72040

== ENCOUNTER 2023-11-18 14:37 | Outpatient (CLI) | payer MEDICARE, OTHER, SELFPAY ==
--- NOTE | ~2023-11-18 | XR_ITS ---
AP and lateral views of the left hip Clinical history: Pain Findings: No acute fracture or dislocation is seen. Probable old, healed fracture or the proximal lef t femoral shaft. Osseous alignment is anatomic. Left hip joint space is preserved. Soft tissues are u nremarkable. Impression: No acute abnormality. Old, healed fracture deformity the proximal left femoral shaft. Reviewed, dictated and finalized at location . Impression: No acute abnormality. Old, healed fracture deformity the proximal left femoral shaft.
== END 2023-11-18 14:38 | disposition home or self-care (01) ==
PROVIDERS: PCP Internal Medicine; Visit Provider Neurological Surgery
DX: M25.552 Pain in left hip (principal); M48.02 Spinal stenosis, cervical region; G95.9 Disease of spinal cord, unspecified
CPT/HCPCS: 73502